=== PATIENT | male | born 1935 | race Caucasian/White ===

== ENCOUNTER 2018-06-28 16:07 | Inpatient (IN) | payer OTHER ==
[2018-06-28] MEDS ORDERED: ACETAMINOPHEN 1000 MG/100 ML VIAL (NON FORMULARY) IVPB ONE (16:35)
[2018-06-28 16:46] LABS: PH,URINE 5.5 (4.5-8); URINE APPEARANCE Clear; URINE BILIRUBIN Negative (NEGATIVE); URINE COLOR Yellow; URINE GLUCOSE (UA) Negative (NEGATIVE); URINE KETONE Negative (NEGATIVE); URINE LEUK ESTERASE Negative (NEGATIVE); URINE NITRITE Negative (NEGATIVE); URINE PROTEIN 1+ (NEGATIVE)
--- NOTE | 2018-06-28 16:50 | PDOC ---
History of Present Illness - General Chief Complaint: Urinary Problem Stated Complaint: FEVER, FREQUENT URINATION Time Seen by Provider: 06/28/18 16:29 - History of Present Illness Initial Comments: 06/28/18 16:45 The patient is a 83 year old male with a significant past medical history of HTN , HLD, aortic stenosis, CAD s/p CABG, CHF, and enlarged prostate who presents to the with 2 days of fever and chills. Patient reports chills that started on Friday night (06/26/18). Patient states he developed a fever last night of 100F that increased to 102 today. Patient took tylenol around 9am this morning with no relief. He states he was sitting in a chair earlier today and couldn't stand up secondary to generalized weakness, prompting him to come to the ER. Patient states he has cough and nasal congestion at his baseline. No worsening cough. Denies nausea, vomiting, or diarrhea. Denies dysuria or change in urinary output. Denies sore throat. Denies chest pain or shortness of breath. Denies any other symptoms. Denies recent travel. Denies sick contact. Past History - Past Medical History Allergies/Adverse Reactions: Allergies Allergy/AdvReac Type Severity Reaction Status Date / Time ibuprofen Allergy Severe Swelling Verified 06/28/18 16:35 Penicillins Allergy Verified 06/28/18 16:35 Home Medications: Ambulatory Orders Atorvastatin Ca [Lipitor] 80 mg PO HS 01/27/12 Tamsulosin HCl [Flomax -] 0.4 mg PO DAILY 12/30/13 Metoprolol Succinate [Toprol Xl] 50 mg PO DAILY 07/16/15 Amiodarone HCl [Cordarone -] 200 mg PO DAILY 06/28/18 Apixaban [Eliquis] 5 mg PO BID 06/28/18 Aspirin Coated [Ecotrin -] 81 mg PO DAILY 06/28/18 Furosemide [Lasix] 20 mg PO DAILY 06/28/18 Potassium Chloride [K-Dur -] 20 meq PO DAILY 06/28/18 Cardiac Disorders: Yes COPD: No Disorders: Yes (BPH) HTN: Yes Hypercholesterolemia: Yes - Surgical History Abdominal Surgery: No Appendectomy: Yes (1969) Cardiac Surgery: Yes (CABG X2 FEBRUARY 2018) Cholecystectomy: No Lung Surgery: No Neurologic Surgery: No Orthopedic Surgery: No - Suicide/Smoking/Psychosocial Hx Smoking Status: No Smoking History: Never smoked Have you smoked in the past 12 months: No Number of Cigarettes Smoked Daily: 0 If you are a former smoker, when did you quit?: 1986 Cigars Per Day: 0 Information on smoking cessation initiated: No Hx Alcohol Use: No Drug/Substance Use Hx: No Substance Use Type: None Review of Systems - Review of Systems Comments:: 06/28/18 16:50 "GENERAL/CONSTITUTIONAL: + fever, chills, generalized weakness HEAD, EYES, EARS, NOSE AND THROAT: No change in vision. No ear pain or discharge. No sore throat. CARDIOVASCULAR: No chest pain, no shortness of breath, no loss of consciousness RESPIRATORY: No cough, wheezing, or hemoptysis. GASTROINTESTINAL: No nausea, vomiting, diarrhea or constipation. GENITOURINARY: No dysuria, frequency, or change in urination. MUSCULOSKELETAL: No joint or muscle swelling or pain. No neck or back pain. SKIN: No rash NEUROLOGIC: No vertigo, no change in strength/sensation. ENDOCRINE: No increased thirst. No abnormal weight change. HEMATOLOGIC/LYMPHATIC: No anemia, easy bleeding, or history of blood clots. ALLERGIC/IMMUNOLOGIC: No hives or skin allergy. *Physical Exam - Vital Signs Last Vital Signs Temp Pulse Resp BP Pulse Ox 102.1 F H 74 18 147/63 96 06/28/18 16:28 06/28/18 16:28 06/28/18 16:28 06/28/18 16:28 06/28/18 16:28 - Physical Exam Comments: 06/28/18 16:50 "GENERAL: Awake, alert, and fully oriented, in no acute distress. HEAD: No signs of trauma EYES: PERRLA, EOMI, sclera anicteric, conjunctiva clear ENT: Auricles normal inspection, hearing grossly normal, nares patent, oropharynx clear without exudates. Moist mucosa NECK: Nontender, no stepoffs, Normal ROM, supple, no lymphadenopathy, JVD, or masses LUNGS: Breath sounds equal, clear to auscultation bilaterally. No wheezes, and no crackles HEART: Regular rate and rhythm, normal S1 and S2, no murmurs, rubs or gallops ABDOMEN: + right upper quadrant tenderness. Soft, normoactive bowel sounds. No guarding, no rebound. No masses EXTREMITIES: Normal range of motion, no edema. No clubbing or cyanosis. No cords , erythema, or tenderness NEUROLOGICAL: Cranial nerves II through XII intact. 5/5 strength and sensation in all extremities, Normal speech, normal gait, normal cerebellar function SKIN: Warm, Dry, normal turgor, no rashes or lesions noted. ED Treatment Course - LABORATORY CBC & Chemistry Diagram: 06/28/18 17:00 06/28/18 17:00 - RADIOLOGY Radiology Studies Ordered: Category Date Time Status CHEST X-RAY PORTABLE* [RAD] Stat Radiology 06/28/18 16:35 Ordered ABDOMEN US [US] Stat Ultrasound 06/28/18 16:40 Ordered Medical Decision Making - Medical Decision Making 06/28/18 16:51 83 M with fevers and weakness x 2 days. Source is unclear at this time. Pt with no focal symptoms. However, on exam, pt was found to have RUQ tenderness. Will evaluate for cholecystitis. Also consider UTI given h/o BPH. - Labs, cultures - UA, CXR - US abdomen - Tylenol 06/28/18 17:59 UA and CXR unremarkable US shows gallbladder sludge + gallstones + wall thickening, no pericholecystic fluid, CBD 0.7cm 06/28/18 18:13 Labs notable for bili >7 Concerning for cholangitis Will cover with flagyl + levaquin - pt is pen-allergic Cr up to 1.6 from 1. Will give 500cc bolus. Pt with h/o CHF and pitting edema on exam, so will need to be cautious with IVF. 06/28/18 18:32 Spoke with DARRYL Dave live ammunition inspector, who agrees with IV abx. Because pt is on Eliquis, no procedure will be done tonight. Confirmed with pt, last dose of eliquis was 9am today. Will admit to hospitalist, transfer to [facility] 06/28/18 18:54 Pt admitted to hospitalist. *DC/Admit/Observation/Transfer Diagnosis at time of Disposition: Cholangitis - Discharge Dispostion Condition at time of disposition: Good Decision to Admit order: Yes - Referrals Referrals: Ezio Castellanos [Primary Care Provider] - - Patient Instructions - Post Discharge Activity - Attestations Physician Attestion: 06/28/18 18:53 I, Dr. Tomer Snyder MD, attest that this document has been prepared under my direction and personally reviewed by me in its entirety. I further attest, that it accurately reflects all work, treatment, procedures and medical decision -making performed by me.
[2018-06-28 16:51] VITALS: BMI 37.5
[2018-06-28 17:28] LABS: EPI CELLS FEW /HPF; URINE WBC 0-2 (0-2)
[2018-06-28 17:29] LABS: AMORP URATES 1+ /hpf (NONE SEEN)
[2018-06-28 17:53] LABS: ALBUMIN 3.3 g/dl (3.5-5.0); ALK PHOS 170 U/L (32-92); ANION GAP 10 MMOL/L (8-16); BILIRUBIN,TOTAL 7.8 mg/dl (0.2-1.0); BLOOD UREA NITROGEN 33 mg/dl (7-18); CALCIUM 8.2 mg/dl (8.4-10.2); CHLORIDE 96 mmol/L (98-107); CO2 22 mmol/L (22-28); CREATININE 1.6 mg/dl (0.6-1.3); GLUCOSE,RANDOM 109 mg/dl (74-106); POTASSIUM 3.1 mmol/L (3.5-5.1); SGOT/AST 70 U/L (10-42); SGPT/ALT 101 U/L (10-40); SODIUM 128 mmol/L (136-145); TOT PROT 7.5 g/dl (6.4-8.3)
[2018-06-28] MEDS ORDERED: ACETAMINOPHEN INJECTION 100 ML IVPB ONE (17:53)
[2018-06-28 17:54] LABS: WHITE BLOOD COUNT 8.4 K/mm3 (4.0-10.8)
[2018-06-28 18:05] LABS: EOS % 0.1 % (0-4.5); HEMATOCRIT 31.5 % (35.4-49); RDW 16.4 % (11.9-15.9)
[2018-06-28 18:07] LABS: BASO % 2.1 % (0-2.0); HEMOGLOBIN 10.1 GM/dl (11.7-16.9); LYMPH % 4.5 % (8-40); MCHC 32.1 g/dl (32.0-35.9); MEAN CELL VOLUME 84.2 fl (80-96); MEAN PLT VOLUME 10.2 fl (7.5-11.1); MONO % 3.7 % (3.8-10.2); NEUT % 89.6 % (42.8-82.8); PLATELET COUNT 140 K/MM3 (134-434); RBC 3.74 M/mm3 (4.00-5.60)
[2018-06-28 18:09] LABS: ACTIVATED PTT 27.8 SECONDS (25.2-36.5)
[2018-06-28 18:14] LABS: INR 2.47 (0.82-1.09); PROTHROMBIN TIME (PATIENT) 27.2 SEC (10.2-13.0)
[2018-06-28 18:30] LABS: VENOUS PC02 38.9 mmHg (38-52); VENOUS PH 7.41 (7.32-7.42); VENOUS PO2 30.6 mmHg (28-48)
[2018-06-28] MEDS ORDERED: SODIUM CHLORIDE 500 ML IV STA (18:39)
--- NOTE | 2018-06-28 20:08 | PN ---
Teaching Attending Note Name of Resident: Lyn Boone ATTENDING PHYSICIAN STATEMENT I saw and evaluated the patient. I reviewed the resident's note and discussed the case with the resident. I agree with the resident's findings and plan as documented. SUBJECTIVE: Seen and examined; please see resident note for further details. Presented for groin pain, interestingly, on the L-side to -ER and was found to have labs suspect for acute cholangitis so he was transferred to this facility. Nothing is making his symptoms better or worse, not limiting ambulation, etc. He is noted to be febrile and jaundiced with elevated LFTs. Agrees is not jaundiced at baseline. The groin pain occurred when he was 'pulling himself up.' He had one episode of loose stools that was self resolving. When I saw him on the floor he was febrile and hemodynamically stable and had no acute complaints. He was doing well and reqesting something to drink. His PMH is complicated by Afib on eliquis, anemia, CAD s/p CABG 02/2018, BPH, HTN, HLD, and non-critical . He was given several liters of fluid and abx prior to transfer. Never had hypotension/tachycardia. Labs/imaging to be discussed in objective section. GI was called by ER; cannot do urgent procedure as on eliquis. 10 sys ROS done and is negative aside from HPI PMH and PSH reviewed FH significant for pancreatic and liver CA. Socially denies alcohol or drug abuse OBJECTIVE: VSS, febrile at 102, labs and imaging all reviewed NAD, resting in bed, jaundice evident RRR s1/2 2/6 systolic murmur (faint) with no heaves, rubs Lungs CTAB with sym exp Nontender throughout abdomen and flanks and nondistended; obese abdomen. Difficult to assess for HSM. +BS CN2-12 grossly intact, no fnd. Normal behavior, euthymic affect. Labs show no white count with negative lactate. Normocytic anemia with Hb of 10 , Na 128, K 3.1, Cr 1.6, AST/ALT 70/101, Alk Phos 170, BNP 2764. Old bilirubin was 3.5 and the AST/ALT is 72/85 with alk phos of 264 on his last values here. Imaging reveals CBD mildly dilated at 0.7 with cholelitiasis and sludge with a thickened wall at 6mm without any pericholecystic fluid. No sonographic martinez sign. IVC wnl. No dilation of the intra/extra-hepatic ducts. Tele reviewed; no acute issues ASSESSMENT AND PLAN: Mr. Chew is an 83 y/o male presenting with fever and acute on chronic hyperbilirubinemia found to have sludge/stones and a 0.7cm CBD; suspected cholangitis. GI consulted by ER; monitoring on the medicine service. Currently stable and afebrile. 1) Acute Choleangitits suspected -Given fevers, elevated LFTs. No teena abdominal pain when i saw him. As PNC allergic will cover with cefepime and flagyl. GI is following. He will need ERCP but he is on eliquis with his afib. Will hold his eliquis and followup with their service. If it is desired can check MRCP but ultimately may require the procedre. I should mention that his LFTs have been high in the past, but his bili hasn't ever been this elevated. I dont see a prior hepatitis workup so will go ahead and check that alongside an ESR/CRP to elucidate the degree of acute inflammation. Hold antihypertensives. 2) Acute Hyponatremia -Appears euvolemic but need to consider BNP elevated but no s/s CHF. Still, checking urine Na, osm and serum osm. Continuing on fluids given #1 but can adjust if needed. He is on lasix at home; could be renal solute loss due to diuresis vs. fluid depletion. He is difficult to ascertain volume status. 3) ADILENE -Trended here at 1.0, now 1.6. Checking FeNa; if inconclusive check HENRY and consult nephro if worsens. If from #1 likely could be prerenal and should have corrected with the fluids he got. Followup on BMP and UOP. 4) Hypokalemia -Replace, monitor labs 5) Elevated BNP -Not overtly overloaded; if he is infected he should still get fluids. Will elect to be more conservative than true maintenance rate while still hydrating, monitor respiratory status carefully, and check an echo to assess for EF/ compliance issues. 6) BPH -No new issues; continue current approach 7) HTN -Hold antihypertensives due to suspected cholangitis; resume when clinically appropriate 8) HLD -Nonacute; resume meds when appropriate 9) H/O -Stated not critical; followup echo and avoid hypotension 10) Afib -Resume MT if tachy from non-septic source; hold for now to prevent suppressing body's response to underlying infection to monitor. Furthermore holding eliquis for procedure as benefits greater than risk of stroke in this acute scenario 11) Groin pain -Benign exam; may be referred? -Symptomatic management for now; once resolution of pressing issues can further investigate unless becomes severe. 12) Normocytic Anemia -Monitor; XF goal >8 DVT px: SCDs for now; can switch to SQ hep while off eliquis and then place back on eliquis when clear with GI.
[2018-06-29] MEDS: LACTATED RINGERS SOLUTION 1,000 ML/1,000 ML INFUS.BAG IV SCH (02:10)
[2018-06-29] MEDS: ACETAMINOPHEN 325 MG TABLET (FP) PO PRN ×2 (02:11→11:56)
[2018-06-29] MEDS: CEFEPIME 2 GM in DEXTROSE 5%-WATER 100 ML IVPB SCH ×3 (03:49→22:00)
--- NOTE | 2018-06-29 04:27 | HP ---
CHIEF COMPLAINT: groin pain PCP: Dr. Castellanos HISTORY OF PRESENT ILLNESS: Patient is a 83 y/o male with a history of HTN, HLD, BPH, , afib, and CABG in February who presents for groin pain. Patient reports he was pulling himself up on friday when he began to feel pain in his left groin. He notes he has never felt this before, it did not get better, and it radiates up his left thigh. For the past two days the patient has also been feeling feverish with chills. He denies any sick contacts. Patient presented to [facility] with these complaints. ED suspicious for cholangitis and had patient transferred here. Patient did not take his PM dose of elliquis. ED spoke with GI and discussed management with antibiotics and follow up in the morning. Patient denies chest pain, SOB, nausea , vomiting, dizziness, or headache. ER course was notable for: (1) (2) (3) Recent Travel: PAST MEDICAL HISTORY:HTN, HLD, BPH, , afib, and CABG in February PAST SURGICAL HISTORY: appendectomy 40 years ago Social History: Smoking: quit 30 years ago Alcohol: denies Drugs: Family History: brother and sister pertinent for pancreatic and liver cancer Allergies ibuprofen Allergy (Severe, Verified 06/28/18 16:35) Swelling Penicillins Allergy (Verified 06/28/18 16:35) HOME MEDICATIONS: Home Medications Medication Instructions Recorded Atorvastatin Ca [Lipitor] 80 mg PO HS 01/27/12 Tamsulosin HCl [Flomax -] 0.4 mg PO DAILY 12/30/13 Metoprolol Succinate [Toprol Xl] 50 mg PO DAILY 07/16/15 Amiodarone HCl [Cordarone -] 200 mg PO DAILY 06/28/18 Apixaban [Eliquis] 5 mg PO BID 06/28/18 Aspirin Coated [Ecotrin -] 81 mg PO DAILY 06/28/18 Furosemide [Lasix] 20 mg PO DAILY 06/28/18 Potassium Chloride [K-Dur -] 20 meq PO DAILY 06/28/18 REVIEW OF SYSTEMS CONSTITUTIONAL: Absent: fever, chills, diaphoresis, generalized weakness, malaise, loss of appetite, weight change HEENT: Absent: rhinorrhea, nasal congestion, throat pain, throat swelling, difficulty swallowing, mouth swelling, ear pain, eye pain, visual changes CARDIOVASCULAR: Absent: chest pain, syncope, palpitations, irregular heart rate, lightheadedness , peripheral edema RESPIRATORY: Absent: cough, shortness of breath, dyspnea with exertion, orthopnea, wheezing, stridor, hemoptysis GASTROINTESTINAL: Absent: abdominal pain, abdominal distension, nausea, vomiting, diarrhea, constipation, melena, hematochezia GENITOURINARY: Absent: dysuria, frequency, urgency, hesitancy, hematuria, flank pain, genital pain MUSCULOSKELETAL: Absent: myalgia, arthralgia, joint swelling, back pain, neck pain SKIN: Absent: rash, itching, pallor HEMATOLOGIC/IMMUNOLOGIC: Absent: easy bleeding, easy bruising, lymphadenopathy, frequent infections ENDOCRINE: Absent: unexplained weight gain, unexplained weight loss, heat intolerance, cold intolerance NEUROLOGIC: Absent: headache, focal weakness or paresthesias, dizziness, unsteady gait, seizure, mental status changes, bladder or bowel incontinence PSYCHIATRIC: Absent: anxiety, depression, suicidal or homicidal ideation, hallucinations. PHYSICAL EXAMINATION Vital Signs - 24 hr 06/28/18 06/28/18 06/28/18 16:28 17:51 18:20 Temperature 102.1 F H 100.9 F H Pulse Rate 74 Pulse Rate [ 69 Apical] Respiratory 18 22 H Rate Blood Pressure 147/63 Blood Pressure 132/55 L [Right Arm] O2 Sat by Pulse 96 94 L Oximetry (%) 06/28/18 06/28/18 06/28/18 19:30 20:02 20:36 Temperature 99.1 F 99.1 F Pulse Rate 62 62 Pulse Rate [ 64 Apical] Respiratory 22 H 22 H 22 H Rate Blood Pressure 108/47 L 109/51 L Blood Pressure 104/48 L [Right Arm] O2 Sat by Pulse 96 Oximetry (%) 06/28/18 06/28/18 06/29/18 22:53 23:00 02:00 Temperature 102.3 F H 102.3 F H 102.0 F H Pulse Rate 81 81 73 Pulse Rate [ Apical] Respiratory 18 20 28 H Rate Blood Pressure 159/79 159/79 144/52 L Blood Pressure [Right Arm] O2 Sat by Pulse 96 Oximetry (%) GENERAL: Awake, alert, and fully oriented, in no acute distress. HEAD: Normal with no signs of trauma. EYES: Pupils equal, round and reactive to light, extraocular movements intact, sclera anicteric, conjunctiva clear. No lid lag. EARS, NOSE, THROAT:Moist mucous membranes. LUNGS: Breath sounds equal, clear to auscultation bilaterally. No wheezes, and no crackles. No accessory muscle use. HEART: Regular rate and rhythm, normal S1 and S2 without murmur, rub or gallop. ABDOMEN: Soft, nontender, not distended, normoactive bowel sounds, no guarding, no rebound, no masses. No hepatomegaly or splenomegaly. MUSCULOSKELETAL: Normal range of motion at all joints. No bony deformities or tenderness. No CVA tenderness. LOWER EXTREMITIES: 2+ pulses, warm, well-perfused. No calf tenderness. No peripheral edema. NEUROLOGICAL: Cranial nerves II-XII intact. Normal speech. PSYCHIATRIC: Cooperative. Good eye contact. Appropriate mood and affect. SKIN: jaundice on presentation Laboratory Results - last 24 hr CBC, BMP 06/28/18 17:00 06/28/18 17:00 CBCD WBC 8.4 K/mm3 (4.0-10.8) 06/28/18 17:00 RBC 3.74 M/mm3 (4.00-5.60) L 06/28/18 17:00 Hgb 10.1 GM/dl (11.7-16.9) L 06/28/18 17:00 Hct 31.5 % (35.4-49) L D 06/28/18 17:00 MCV 84.2 fl (80-96) 06/28/18 17:00 MCHC 32.1 g/dl (32.0-35.9) 06/28/18 17:00 RDW 16.4 % (11.9-15.9) H D 06/28/18 17:00 Plt Count 140 K/MM3 (134-434) D 06/28/18 17:00 MPV 10.2 fl (7.5-11.1) D 06/28/18 17:00 CMP Sodium 128 mmol/L (136-145) L 06/28/18 17:00 Potassium 3.1 mmol/L (3.5-5.1) L 06/28/18 17:00 Chloride 96 mmol/L (98-107) L 06/28/18 17:00 Carbon Dioxide 22 mmol/L (22-28) D 06/28/18 17:00 Anion Gap 10 MMOL/L (8-16) 06/28/18 17:00 BUN 33 mg/dl (7-18) H 06/28/18 17:00 Creatinine 1.6 mg/dl (0.6-1.3) H 06/28/18 17:00 Creat Clearance w eGFR 41.69 (>60) 06/28/18 17:00 Random Glucose 109 mg/dl (74-106) H 06/28/18 17:00 Calcium 8.2 mg/dl (8.4-10.2) L 06/28/18 17:00 Total Bilirubin 7.8 mg/dl (0.2-1.0) H 06/28/18 17:00 AST 70 U/L (10-42) H 06/28/18 17:00 ALT 101 U/L (10-40) H 06/28/18 17:00 Alkaline Phosphatase 170 U/L (32-92) H 06/28/18 17:00 Total Protein 7.5 g/dl (6.4-8.3) 06/28/18 17:00 Albumin 3.3 g/dl (3.5-5.0) L 06/28/18 17:00 CARDIAC ENZYMES Troponin I 0.04 ng/ml (0.00-0.06) D 06/28/18 17:00 ASSESSMENT/PLAN: Patient is a 83 y/o male with a history of HTN, HLD, BPH, , afib, and CABG in February who presents for groin pain. #sepsis 2/2 to cholelithiasis r/o cholangitis - Abd CT: gallbladder stones, thickening and sludge - Continue Cefepime and Metronidazole - 30 cc/kg, continue LR @ 60 - NPO - f/u GI Dr. Hilton - can consider consulting surgery if condition worsens - f/u ESR and CRP - f/u hepatitis panel #afib controlled - hold medications until patient hemodynamically stable - f/u Echo, r/o CHF - continue fluids for , avoid decreased preload #hyponatremia - 2/2 to sepsis vs CHF, patient euvolemic - F/u urine and serum osmoles, sodium osmole #ADILENE - likely 2/2 to sepsis - f/u FeNA - monitor after fluids #normoytic anemia - f/u iron studeis - vitamin B 12 and folate levels #HTN - hold medications, resume when hemodynamically stable #Hypokalemia - hold lasix, monitor labs #DVT ppx - continue SCD's - hold heparin for possible surgery Visit type - Emergency Visit Emergency Visit: Yes ED Registration Date: 06/28/18 Care time: The patient presented to the Emergency Department on the above date and was hospitalized for further evaluation of their emergent condition. - New Patient This patient is new to me today: Yes Date on this admission: 06/29/18 - Critical Care Critical Care patient: No
[2018-06-29 06:00] LABS: BASO % 0.4 % (0-2.0); HEMATOCRIT 27.3 % (35.4-49); HEMOGLOBIN 8.7 GM/dL (11.7-16.9); LYMPH % 3.6 % (8-40); MCH 26.1 pg (25.7-33.7); MCHC 31.9 g/dl (32.0-35.9); MEAN CELL VOLUME 81.9 fl (80-96); MEAN PLT VOLUME 9.4 fl (7.5-11.1); MONO % 4.8 % (3.8-10.2); NEUT % 91.2 % (42.8-82.8); PLATELET COUNT 107 K/MM3 (134-434); RBC 3.33 M/mm3 (4.00-5.60); RDW 17.6 % (11.9-15.9); WHITE BLOOD COUNT 7.8 K/mm3 (4.0-10.0)
[2018-06-29 07:23] LABS: ALBUMIN 2.7 g/dl (3.4-5.0); ALK PHOS 189 U/L (45-117); ANION GAP 12 MMOL/L (8-16); BILIRUBIN,TOTAL 6.6 mg/dL (0.2-1); BLOOD UREA NITROGEN 31 mg/dL (7-18); CALCIUM 7.6 mg/dL (8.5-10.1); CHLORIDE 101 mmol/L (98-107); CHOLESTEROL 92 mg/dL (50-200); CO2 23 mmol/L (21-32); CREATININE 1.5 mg/dL (0.55-1.3); GLUCOSE,RANDOM 91 mg/dL (74-106); MAGNESIUM 2.1 mg/dL (1.8-2.4); PHOSPHOROUS 2.4 mg/dL (2.5-4.9); SGOT/AST 55 U/L (15-37); SGPT/ALT 77 U/L (13-61); SODIUM 136 mmol/L (136-145); TOT PROT 6.4 g/dl (6.4-8.2)
--- NOTE | 2018-06-29 10:33 | CONSULT ---
Consult Consult Specialty:: General Surgery Reason for Consultation:: Cholangitis - History of Present Illness Chief Complaint: Groin pain and Weakness History of Present Illness: 83yo male PMH morbid obsity, HTN, HLD, BPH, , afib, and CABG in February who presents for groin pain. Patient reports he was pulling himself up on friday when he began to feel pain in his left groin. He notes he has never felt this before, it did not get better, and it radiates up his left thigh. For the past two days the patient has also been feeling feverish with chills. He denies any sick contacts. Patient presented to [facility] with these complaints. ED suspicious for cholangitis and had patient transferred here Tbili >6. Patient did not take his PM dose of elliquis. ED spoke with GI and discussed management with antibiotics and follow up in the morning. Patient denies chest pain, SOB, nausea , vomiting, dizziness, or headache. We were asked to assess. - History Source History Provided By: Patient, Medical Record Limitations to Obtaining History: No Limitations - Past Medical History Cardio/Vascular: Yes: HTN, Hyperlipdemia, [place] Additional Medical History: obesity - Past Surgical History Past Surgical History: Yes: CABG - Alcohol/Substance Use Hx Alcohol Use: No - Smoking History Smoking history: Never smoked Have you smoked in the past 12 months: No Aproximately how many cigarettes per day: 0 If you are a former smoker, when did you quit?: 1985 Home Medications - Allergies Allergies/Adverse Reactions: Allergies Allergy/AdvReac Type Severity Reaction Status Date / Time ibuprofen Allergy Severe Swelling Verified 06/28/18 16:35 Penicillins Allergy Verified 06/28/18 16:35 - Home Medications Home Medications: Ambulatory Orders Atorvastatin Ca [Lipitor] 80 mg PO HS 01/27/12 Tamsulosin HCl [Flomax -] 0.4 mg PO DAILY 12/30/13 Metoprolol Succinate [Toprol Xl] 50 mg PO DAILY 07/16/15 Amiodarone HCl [Cordarone -] 200 mg PO DAILY 06/28/18 Apixaban [Eliquis] 5 mg PO BID 06/28/18 Aspirin Coated [Ecotrin -] 81 mg PO DAILY 06/28/18 Furosemide [Lasix] 20 mg PO DAILY 06/28/18 Potassium Chloride [K-Dur -] 20 meq PO DAILY 06/28/18 Review of Systems - Review of Systems Constitutional: reports: Fever. denies: Chills Eyes: denies: Double Vision, Recent Change in Vision HENT: denies: Ear Discharge, Throat Pain, Ringing in Ears Neck: denies: Lumps, Pain on Movement, Swollen Glands Cardiovascular: denies: Chest Pain, Palpitations Gastrointestinal: reports: Abdominal Pain, Indigestion. denies: Nausea, Rectal Bleeding, Vomiting Genitourinary: denies: Discharge, Dysuria, Flank Pain Breasts: reports: No Symptoms Reported. denies: Pain Musculoskeletal: denies: Muscle Cramps, Muscle Weakness Integumentary: denies: Eczema, Lump, Rash Neurological: denies: Confusion, Seizure, Syncope Endocrine: denies: Unexplained Weight Gain, Unexplained Weight Loss Hematology/Lymphatic: denies: Easily Bruised, Excessive Bleeding Psychiatric: denies: Anxiety, Depression Physical Exam Vital Signs: Vital Signs Temperature 97.9 F 06/29/18 05:30 Pulse Rate 62 06/29/18 05:30 Respiratory Rate 20 06/29/18 05:30 Blood Pressure 108/48 L 06/29/18 05:30 O2 Sat by Pulse Oximetry (%) 96 06/28/18 22:53 Constitutional: Yes: Well Nourished, No Distress, Calm, Obese Eyes: Yes: Conjunctiva Clear, EOM Intact HENT: Yes: Atraumatic, Normocephalic Neck: Yes: Supple, Trachea Midline Cardiovascular: Yes: Regular Rate and Rhythm, S1, S2 Respiratory: Yes: Regular, CTA Bilaterally Gastrointestinal: Yes: Normal Bowel Sounds, Soft, Abdomen, Obese. No: Pulsatile Mass, Tenderness (-murphys sign), Tenderness, Epigastrium, Tenderness , Rebound ...Rectal Exam: Yes: Deferred Renal/: No: CVA Tenderness - Left, CVA Tenderness - Right Musculoskeletal: No: Muscle Pain, Muscle Weakness Extremities: No: Cool, Cyanosis Edema: No Peripheral Pulses WNL: Yes Integumentary: No: Jaundice, Pressure Ulcer Neurological: Yes: Alert, Oriented Psychiatric: Yes: Alert, Oriented Labs: CBC, BMP 06/29/18 02:30 06/29/18 02:30 Imaging - Results Ultrasound: Report Reviewed ( cholelithiasis and sludge, CBD 0.7cm), Image Reviewed Problem List - Problems (1) Cholangitis Assessment/Plan: 83yo male MMP with cholelithiasis possible choledocholithiasis causing a cholangitis Tbili>6, Dbili >4 with transaminititis, fatty changes on imaging. he has no abdominal tendernenss on exam. NPO and IVF hydration IV antibiotics ID consult GI evaluation Cardiology risk stratification/ medical clearance for possible Possible laparoscopic cholecystetcomy Thank you for the opportunity to participate in the care of this patient. Code(s): K83.09 - OTHER CHOLANGITIS (2) Abnormal LFTs Code(s): R79.89 - OTHER SPECIFIED ABNORMAL FINDINGS OF BLOOD CHEMISTRY (3) Aortic stenosis Code(s): Q25.3 - SUPRAVALVULAR AORTIC STENOSIS (4) Atrial fibrillation with rapid ventricular response Code(s): I48.91 - UNSPECIFIED ATRIAL FIBRILLATION (5) Chest pain Code(s): R07.9 - CHEST PAIN, UNSPECIFIED
[2018-06-29 11:20] LABS: ANISOCYTOSIS 1+; MACROCYTOSIS 1+; PLATELET ESTIMATE DECREASED
[2018-06-29] MEDS ORDERED: PHYTONADIONE 5 MG TABLET PO ONE (11:54)
--- NOTE | 2018-06-29 12:10 | CON.GI ---
Consult Consult Specialty:: GI Referred by:: Hospitalist Service Reason for Consultation:: Abnormal liver chemistries - History of Present Illness Chief Complaint: Left hip pain History of Present Illness: 83M states being in [place] up until friday. On friday he noticed a pain in his left hip radiating down to his lateral / anterior thigh. He noticed belching as well along with small amount of vomiting friday. He had fever at home and took 2 ES tylenol friday and friday. He came to the [facility] [facility] for further evaluation yesterday. He was noted to have elevated liver chemistries including bilirubin of 7, out of proportion to an alkaline phosphatase of 170. INR was also 2.75. He denies abdominal pain. Left hip pain persists. In review of [facility], he was noted to have abnormal liver chemistries in 2014 including elevated bilirubin of 3.5. He denies a known history of liver disease , drinks occasional wine and does not follow with a bark grinder. His explains that he had outpatient labs 06/08 that revealed "a high bilirubin ". She states that she provided a copy of this to the [place] [facility] staff however there was no copy available in the chart. He recently underwent CABG at [facility] 02/25 and new medications subsequent to that included Amiodarone, an escalated dose of lipitor to 80mg, Eliquis and lasix. He had two siblings with pancreatic cancer. There is no family history of colorectal cancer. He refuses MRI even with giving anxiolytic - History Source History Provided By: Patient, Family Member ( present at bedside) - Past Medical History Cardio/Vascular: Yes: HTN, Hyperlipdemia, [place] Additional Medical History: obesity - Past Surgical History Past Surgical History: Yes: CABG - Alcohol/Substance Use Hx Alcohol Use: No - Smoking History Smoking history: Never smoked Have you smoked in the past 12 months: No Aproximately how many cigarettes per day: 0 If you are a former smoker, when did you quit?: 1985 - Social History Usual Living Arrangement: With Spouse ADL: Independent Occupation: Retired: worked for [employer] Place of : [facility] History of Recent Travel: No Home Medications - Allergies Allergies/Adverse Reactions: Allergies Allergy/AdvReac Type Severity Reaction Status Date / Time ibuprofen Allergy Severe Swelling Verified 06/28/18 16:35 Penicillins Allergy Verified 06/28/18 16:35 - Home Medications Home Medications: Ambulatory Orders Atorvastatin Ca [Lipitor] 80 mg PO HS 01/27/12 Tamsulosin HCl [Flomax -] 0.4 mg PO DAILY 12/30/13 Metoprolol Succinate [Toprol Xl] 50 mg PO DAILY 07/16/15 Amiodarone HCl [Cordarone -] 200 mg PO DAILY 06/28/18 Apixaban [Eliquis] 5 mg PO BID 06/28/18 Aspirin Coated [Ecotrin -] 81 mg PO DAILY 06/28/18 Furosemide [Lasix] 20 mg PO DAILY 06/28/18 Potassium Chloride [K-Dur -] 20 meq PO DAILY 06/28/18 Family Disease History - Family Disease History Family Disease History: Other: Father (: 76: renal failure), Mother (: 92: "natural causes") Other Family History: 11 siblings: 2 with pancreatic cancer, 1 with BCA Review of Systems - Review of Systems Constitutional: reports: Chills, Fever. denies: Unintentional Wgt. Loss Cardiovascular: reports: Edema. denies: Chest Pain Respiratory: reports: Cough (chronic, since CABG) Gastrointestinal: reports: Indigestion (belching, has resolved), Vomiting (x 1 friday). denies: Abdominal Pain, Bloating, Constipation, Diarrhea, Melena Physical Exam-GI Vital Signs: Vital Signs Temperature 102.8 Rectal 06/29/18 12pm 06/29/18 12pm 06/29/18 12pm 06/29/18 12pm 06/28/18 12pm Constitutional: Yes: Calm Eyes: No: Sclera Icterus Cardiovascular: Yes: Regular Rate and Rhythm, Murmur (2/6 Systolic murmur at the RSB) Respiratory: Yes: CTA Bilaterally Gastrointestinal Inspection: No: Distention ...Auscultate: Yes: Normoactive Bowel Sounds ...Palpate: No: Hepatomegaly, Splenomegaly, Tenderness ...Percussion: No: Tympanitic Edema: Yes (up to thighs) Edema: LLE: 1+, RLE: 2+ Neurological: Yes: Alert Labs: CBC, BMP 06/29/18 02:30 06/29/18 02:30 INR, PTT INR 2.47 (0.82-1.09) H D 06/28/18 17:00 Hepatic Panel Total Bilirubin 6.6 mg/dL (0.2-1) H 06/29/18 02:30 AST 55 U/L (15-37) H 06/29/18 02:30 ALT 77 U/L (13-61) H 06/29/18 02:30 Alkaline Phosphatase 189 U/L (45-117) H 06/29/18 02:30 Albumin 2.7 g/dl (3.4-5.0) L 06/29/18 02:30 Laboratory Tests 01/27/12 07/16/15 06/28/18 21:10 11:30 17:00 Total Bilirubin 1.8 H 3.5 H D 7.8 H AST 24 72 H D 70 H ALT 22 85 H D 101 H Alkaline Phosphatase 59 264 H D 170 H 06/29/18 02:30 Total Bilirubin 6.6 H AST 55 H ALT 77 H Alkaline Phosphatase 189 H Imaging - Results Ultrasound: Report Reviewed (Hepatomegaly with fatty infoltration, Mildly dilated CBD, GB wall mildly thickened with sludge and multiple small stones.) Problem List - Problems (1) Abnormal LFTs Assessment/Plan: Clinical picture is not clear cut for cholangitis however it needs to be higher in differential for now. It appears from prior blood work that Mr. Chew may have underlying liver disease which has been further acutely decompensated by current clinical situation. His primary complaint of left thigh and hip pain is hard to link to biliary infection as well and infection / inflammatory process at that site would need to be investigated. Advise: NPO IV hydration / IV Abx. ID consult for Dr. Tracey has been placed and I discussed case with her Spoke with director medical economics yamileth. Patient needs direct bilirubin, repeat coags (asked that she order 2 units FFP for today),CPK drawn. If predominantly indirect hyperbilirubinemia, a hemolysis work-up would be needed. Imaging of the left help to exclude a source for sepsis. Surgical consult Eliminate potentially hepatotoxic agents: eliminate tylenol Hepatitis A/B/C serologies in AM I discussed the possibility of ERCP with Mr. Chew and his . I explained that it would be to further evaluate the bile duct to assess for source of infection. We discussed potential risks of the procedure like but not limited to bleeding, perforation requiring surgery to repair, infection, pancreatitis, sedation medication effects all of which could be potentially life threatening. Case was discussed with Dr. Black, biliary endoscopist as well. He will be going to discuss the case with Mr. Chew possible urgent ERCP today given high fevers today without obvious source. Code(s): R79.89 - OTHER SPECIFIED ABNORMAL FINDINGS OF BLOOD CHEMISTRY
[2018-06-29] MEDS: KCL 10 MEQ IVPB 10 MEQ/100 ML INFUS.BAG IVPB SCH ×3 (12:14→20:00)
[2018-06-29 13:03] LABS: BILIRUBIN,DIRECT 4.9 mg/dL (0.0-0.2)
--- NOTE | 2018-06-29 13:32 | PN ---
Progress Note (short form) - Note Progress Note: ERCP Note: I was asked by Dr Encinas to emergently evaluate Mr. Chew for suspected cholangitis. He has chills and is febrile to 103 with jaundice. Sonogram reveals small gallstones and a slightly dilated CBD. His bilirubin was 1.7 at [facility] on 05/22/18. He denies abdominal pain. He denies and h/o liver disease. He drinks occasional wine with dinner. His brother of liver cancer related to alcoholic liver disease. I explained to Chin and his that his constellation of findings suggest ascending cholangitis. I have discussed the role of ERCP to confirm the diagnosis and to provide drainage of the CBD. I explained that given his Eliquis exposure that a sphincterotomy will not be feasible and that he will need a repeat ERCP for a sphincterotomy and stone extractions. I also told him that he will need subsequent cholecystectomy. I informed him and his of the potential for such complications as perforation, hemorrhage and ERCP induced pancreatitis that could lead to lung and kidney failure. I quoted an incidence of 5 -15%. After I answered their questions he signed an informed consent. I have rearranged my schedule so that I can do this procedure immediately. FFP has already been ordered and potassium is being replaced. He is receiving antibiotics. Chin denies having aortic stenosis. He had his CABG in 02/25 but denies having an VT. He does have paroxysmal atrial fibrillation and CHF. I have called his remarketing rep Dr. Dante Darby [phone] to discuss his situation and await a return call.
[2018-06-29 13:55] LABS: INR 1.49 (0.83-1.09); PROTHROMBIN TIME (PATIENT) 17.6 SEC (9.7-13.0)
[2018-06-29] MEDS ORDERED: PT OWN MED DRAWER 7, Y5N ONE (14:08)
--- NOTE | 2018-06-29 14:35 | CON.ID ---
Consult Consult Specialty:: infectious disease Referred by:: dr dumont Reason for Consultation:: fever - History of Present Illness Chief Complaint: fever, weakness, belching, left groin pain History of Present Illness: 83 yo man with cad [facility], developed chills at dinner on Friday night, didn't eat anything and went home. He had belching and chills and fever that night, He had weakness and had trouble getting out of bed to use the bathroom. After that he had left groin that has persisted. Actullay better today. He denies trauma to the area, no falls. He continued to have fevers and chills and finally became so weak that he went to [facility]. He was found to be icteric with abnl lfts and fever to 102. Ultrasound with gallstones, dilated cbd he was transferred to [facility] for further workup continued fevers he received levaquin, flagyl, cefepime since admission denies abdominal pain +reflux - Past Medical History Cardio/Vascular: Yes: CAD, HTN, Hyperlipdemia, [place] Additional Medical History: obesity - Past Surgical History Past Surgical History: Yes: Appendectomy, CABG ([facility] ), Cataract Removal - Alcohol/Substance Use Hx Alcohol Use: No - Smoking History Smoking history: Never smoked Have you smoked in the past 12 months: No Aproximately how many cigarettes per day: 0 If you are a former smoker, when did you quit?: 1985 - Social History Usual Living Arrangement: With Spouse ADL: Independent Occupation: Retired: worked for [employer] History of Recent Travel: No Home Medications - Allergies Allergies/Adverse Reactions: Allergies Allergy/AdvReac Type Severity Reaction Status Date / Time ibuprofen Allergy Severe Swelling Verified 06/28/18 16:35 Penicillins Allergy Verified 06/28/18 16:35 - Home Medications Home Medications: Ambulatory Orders Atorvastatin Ca [Lipitor] 80 mg PO HS 01/27/12 Tamsulosin HCl [Flomax -] 0.4 mg PO DAILY 12/30/13 Metoprolol Succinate [Toprol Xl] 50 mg PO BID 07/16/15 Amiodarone HCl [Cordarone -] 200 mg PO DAILY 06/28/18 Apixaban [Eliquis] 5 mg PO BID 06/28/18 Aspirin Coated [Ecotrin -] 81 mg PO DAILY 06/28/18 Furosemide [Lasix] 20 mg PO DAILY 06/28/18 Potassium Chloride [K-Dur -] 20 meq PO DAILY 06/28/18 Family Disease History - Family Disease History Family Disease History: Other: Father (: 76: renal failure), Mother (: 92: "natural causes") Other Family History: 11 siblings: 2 with pancreatic cancer, 1 with BCA, 1 liver cancer Review of Systems - Review of Systems Constitutional: reports: Chills, Fever, Loss of Appetite, Weakness Eyes: reports: No Symptoms HENT: reports: No Symptoms Neck: reports: No Symptoms Cardiovascular: reports: No Symptoms, Edema (chronic right greater then left). denies: Chest Pain Respiratory: denies: Cough, SOB Gastrointestinal: reports: Indigestion. denies: Abdominal Pain Genitourinary: reports: No Symptoms Musculoskeletal: reports: Other (left groin pain-much improved) Physical Exam Vital Signs: Vital Signs Temperature 102 F H 06/29/18 12:14 Pulse Rate 62 06/29/18 05:30 Respiratory Rate 20 06/29/18 10:00 Blood Pressure 108/48 L 06/29/18 05:30 O2 Sat by Pulse Oximetry (%) 96 06/29/18 10:00 Constitutional: Yes: Well Nourished, No Distress, Calm Eyes: Yes: Sclera Icterus HENT: Yes: Atraumatic, Normocephalic Neck: Yes: Supple Cardiovascular: Yes: Regular Rate and Rhythm, Murmur (2/6 tiffanie) Respiratory: Yes: Regular, CTA Bilaterally Gastrointestinal: Yes: Normal Bowel Sounds, Soft. No: Tenderness, Epigastrium ...Rectal Exam: Yes: Deferred Musculoskeletal: Yes: WNL, Other (left groin discomfort by report, no pain on palpation, FROM left hip, no knee swelling no hip erythema) Edema: Yes Edema: LLE: Trace, RLE: Trace Integumentary: Yes: WNL Wound/Incision: Yes: Other (sternal incision well healed- no erythema, leg incisions well healed, no erythema) Psychiatric: Yes: Alert, Oriented Labs: CBC, BMP 06/29/18 02:30 06/29/18 02:30 Laboratory Tests 06/29/18 02:30 Total Bilirubin 6.6 H AST 55 H ALT 77 H Alkaline Phosphatase 189 H blood cultures, urine cultures Imaging - Results Chest X-ray: Report Reviewed, Image Reviewed Ultrasound: Report Reviewed Problem List - Problems (1) Fever Code(s): R50.9 - FEVER, UNSPECIFIED (2) Abnormal LFTs Code(s): R79.89 - OTHER SPECIFIED ABNORMAL FINDINGS OF BLOOD CHEMISTRY (3) Left groin pain Code(s): R10.32 - LEFT LOWER QUADRANT PAIN (4) Penicillin allergy Code(s): Z88.0 - ALLERGY STATUS TO PENICILLIN Assessment/Plan suspect this is cholangitis given recent normal lfts in May groin pain by history appears musculoskeletal - would get hip xray, may need a ct scan as well based on results pen allergy tolerated cefepime would continue cefepime and flagyl for ERCP today (refuses MRCP) will follow with you d/w patient and at bedside
--- NOTE | 2018-06-29 14:57 | PN ---
Physical Exam: SUBJECTIVE: Patient seen and examined at bedside. patient is complaining of left hip/groin pain however he is not having any abdominal pain/nausea or vomiting- patient however did have another fever spike of 102 this afternoon. patient going fro ERCP this afternoon with Dr. Black; he denies any CP/SOB/ OBJECTIVE: Vital Signs Period Temp Pulse Resp BP Sys/Lujan Pulse Ox Last 24 Hr 97.9 F-102.3 F 62-81 18-28 104-159/47-79 94-96 GENERAL: The patient is awake, alert, and fully oriented, in no acute distress. EYES: PERRL, extraocular movements intact, sclera anicteric, conjunctiva clear. No ptosis. NECK: no JVD, no lymphadenopathy LUNGS: CTA B/L; no rales, rhonchi or wheezing. HEART: Regular rate and rhythm, S1, S2 without murmur, rub or gallop. ABDOMEN: Soft, nontender, nondistended, normoactive bowel sounds, no martinez's sign EXTREMITIES: warm; well-perfused, no clubbing/cyanosis or edema MUSCULOSKELETAL: + left sided hip/thigh pain PSYCH: Normal mood, normal affect. SKIN: Warm, dry, normal turgor, no rashes or lesions noted Laboratory Results - last 24 hr 06/28/18 06/28/18 06/28/18 16:35 17:00 17:00 WBC 8.4 RBC 3.74 L Hgb 10.1 L Hct 31.5 L D MCV 84.2 MCH 27.0 D MCHC 32.1 RDW 16.4 H D Plt Count 140 D MPV 10.2 D Absolute Neuts (auto) 7.5 Neutrophils % 89.6 H D Neutrophils % (Manual) Band Neutrophils % Lymphocytes % 4.5 L D Lymphocytes % (Manual) Monocytes % 3.7 L Monocytes % (Manual) Eosinophils % 0.1 D Eosinophils % (Manual) Basophils % 2.1 H D Basophils % (Manual) Myelocytes % (Man) Promyelocytes % (Man) Blast Cells % (Manual) Nucleated RBC % Metamyelocytes Hypochromia Platelet Estimate Polychromasia Poikilocytosis Anisocytosis Microcytosis Macrocytosis Schistocytes ESR PT with INR 27.2 H INR 2.47 H D PTT (Actin FS) 27.8 VBG pH POC VBG pCO2 POC VBG pO2 Mixed VBG HCO3 Sodium Potassium Chloride Carbon Dioxide Anion Gap BUN Creatinine Creat Clearance w eGFR Random Glucose Serum Osmolality Lactic Acid Calcium Phosphorus Magnesium Ferritin Total Bilirubin Direct Bilirubin AST ALT Alkaline Phosphatase Creatine Kinase Creatine Kinase Index CK-MB (CK-2) Troponin I C-Reactive Protein B-Natriuretic Peptide Total Protein Albumin Cholesterol Urine Color Yellow Urine Appearance Clear Urine pH 5.5 Ur Specific Queen 1.015 Urine Protein 1+ H Urine Glucose (UA) Negative Urine Ketones Negative Urine Blood 1+ H Urine Nitrite Negative Urine Bilirubin Negative Urine Urobilinogen 1.0 Ur Leukocyte Esterase Negative Urine RBC 2-5 Urine WBC 0-2 Ur Epithelial Cells Few Amorphous Urates 1+ Urine Osmolality Ur Random Sodium Urine Creatinine Influenza A (Rapid) Influenza B (Rapid) 06/28/18 06/28/18 06/28/18 17:00 17:00 17:00 WBC RBC Hgb Hct MCV MCH MCHC RDW Plt Count MPV Absolute Neuts (auto) Neutrophils % Neutrophils % (Manual) Band Neutrophils % Lymphocytes % Lymphocytes % (Manual) Monocytes % Monocytes % (Manual) Eosinophils % Eosinophils % (Manual) Basophils % Basophils % (Manual) Myelocytes % (Man) Promyelocytes % (Man) Blast Cells % (Manual) Nucleated RBC % Metamyelocytes Hypochromia Platelet Estimate Polychromasia Poikilocytosis Anisocytosis Microcytosis Macrocytosis Schistocytes ESR PT with INR INR PTT (Actin FS) VBG pH 7.41 POC VBG pCO2 38.9 POC VBG pO2 30.6 Mixed VBG HCO3 24.3 Sodium 128 L Potassium 3.1 L Chloride 96 L Carbon Dioxide 22 D Anion Gap 10 BUN 33 H Creatinine 1.6 H Creat Clearance w eGFR 41.69 Random Glucose 109 H Serum Osmolality Lactic Acid 1.2 Calcium 8.2 L Phosphorus Magnesium Ferritin Total Bilirubin 7.8 H Direct Bilirubin AST 70 H ALT 101 H Alkaline Phosphatase 170 H Creatine Kinase Creatine Kinase Index CK-MB (CK-2) Troponin I C-Reactive Protein B-Natriuretic Peptide Total Protein 7.5 Albumin 3.3 L Cholesterol Urine Color Urine Appearance Urine pH Ur Specific Queen Urine Protein Urine Glucose (UA) Urine Ketones Urine Blood Urine Nitrite Urine Bilirubin Urine Urobilinogen Ur Leukocyte Esterase Urine RBC Urine WBC Ur Epithelial Cells Amorphous Urates Urine Osmolality Ur Random Sodium Urine Creatinine Influenza A (Rapid) Influenza B (Rapid) 06/28/18 06/28/1806/28/18 17:00 17:00 17:00 WBC RBC Hgb Hct MCV MCH MCHC RDW Plt Count MPV Absolute Neuts (auto) Neutrophils % Neutrophils % (Manual) Band Neutrophils % Lymphocytes % Lymphocytes % (Manual) Monocytes % Monocytes % (Manual) Eosinophils % Eosinophils % (Manual) Basophils % Basophils % (Manual) Myelocytes % (Man) Promyelocytes % (Man) Blast Cells % (Manual) Nucleated RBC % Metamyelocytes Hypochromia Platelet Estimate Polychromasia Poikilocytosis Anisocytosis Microcytosis Macrocytosis Schistocytes ESR PT with INR INR PTT (Actin FS) VBG pH POC VBG pCO2 POC VBG pO2 Mixed VBG HCO3 Sodium Potassium Chloride Carbon Dioxide Anion Gap BUN Creatinine Creat Clearance w eGFR Random Glucose Serum Osmolality Lactic Acid Calcium Phosphorus Magnesium Ferritin Total Bilirubin Direct Bilirubin AST ALT Alkaline Phosphatase Creatine Kinase Creatine Kinase Index CK-MB (CK-2) Troponin I Cancelled 0.04 D C-Reactive Protein B-Natriuretic Peptide 2764.3 H Total Protein Albumin Cholesterol Urine Color Urine Appearance Urine pH Ur Specific Queen Urine Protein Urine Glucose (UA) Urine Ketones Urine Blood Urine Nitrite Urine Bilirubin Urine Urobilinogen Ur Leukocyte Esterase Urine RBC Urine WBC Ur Epithelial Cells Amorphous Urates Urine Osmolality Ur Random Sodium Urine Creatinine Influenza A (Rapid) Influenza B (Rapid) 06/28/18 06/29/18 06/29/18 17:30 02:30 02:30 WBC 7.8 RBC 3.33 L Hgb 8.7 L Hct 27.3 L MCV 81.9 MCH 26.1 MCHC 31.9 L RDW 17.6 H Plt Count 107 L MPV 9.4 Absolute Neuts (auto) 7.1 Neutrophils % 91.2 H Neutrophils % (Manual) 76.0 Band Neutrophils % 14.0 Lymphocytes % 3.6 L Lymphocytes % (Manual) 6.0 L Monocytes % 4.8 Monocytes % (Manual) 4 Eosinophils % 0.0 Eosinophils % (Manual) 0.0 Basophils % 0.4 Basophils % (Manual) 0.0 Myelocytes % (Man) 0 Promyelocytes % (Man) 0 Blast Cells % (Manual) 0 Nucleated RBC % 0 Metamyelocytes 0 Hypochromia 0 Platelet Estimate Decreased Polychromasia 0 Poikilocytosis 1+ Anisocytosis 1+ Microcytosis 1+ Macrocytosis 1+ Schistocytes 1+ ESR PT with INR INR PTT (Actin FS) VBG pH POC VBG pCO2 POC VBG pO2 Mixed VBG HCO3 Sodium 136 Potassium 3.0 L Chloride 101 Carbon Dioxide 23 Anion Gap 12 BUN 31 H Creatinine 1.5 H Creat Clearance w eGFR 44.92 Random Glucose 91 Serum Osmolality Lactic Acid Calcium 7.6 L Phosphorus 2.4 L Magnesium 2.1 Ferritin Total Bilirubin 6.6 H Direct Bilirubin AST 55 H ALT 77 H Alkaline Phosphatase 189 H Creatine Kinase Creatine Kinase Index CK-MB (CK-2) Troponin I C-Reactive Protein B-Natriuretic Peptide Total Protein 6.4 Albumin 2.7 L Cholesterol 92 Urine Color Urine Appearance Urine pH Ur Specific Queen Urine Protein Urine Glucose (UA) Urine Ketones Urine Blood Urine Nitrite Urine Bilirubin Urine Urobilinogen Ur Leukocyte Esterase Urine RBC Urine WBC Ur Epithelial Cells Amorphous Urates Urine Osmolality Ur Random Sodium Urine Creatinine Influenza A (Rapid) Negative Influenza B (Rapid) Negative 06/29/18 06/29/18 06/29/18 02:30 02:30 02:30 WBC RBC Hgb Hct MCV MCH MCHC RDW Plt Count MPV Absolute Neuts (auto) Neutrophils % Neutrophils % (Manual) Band Neutrophils % Lymphocytes % Lymphocytes % (Manual) Monocytes % Monocytes % (Manual) Eosinophils % Eosinophils % (Manual) Basophils % Basophils % (Manual) Myelocytes % (Man) Promyelocytes % (Man) Blast Cells % (Manual) Nucleated RBC % Metamyelocytes Hypochromia Platelet Estimate Polychromasia Poikilocytosis Anisocytosis Microcytosis Macrocytosis Schistocytes ESR 34 H PT with INR INR PTT (Actin FS) VBG pH POC VBG pCO2 POC VBG pO2 Mixed VBG HCO3 Sodium Potassium Chloride Carbon Dioxide Anion Gap BUN Creatinine Creat Clearance w eGFR Random Glucose Serum Osmolality 284 Lactic Acid Calcium Phosphorus Magnesium Ferritin 49.0 Total Bilirubin Direct Bilirubin AST ALT Alkaline Phosphatase Creatine Kinase Creatine Kinase Index CK-MB (CK-2) Troponin I C-Reactive Protein 9.9 H B-Natriuretic Peptide Total Protein Albumin Cholesterol Urine Color Urine Appearance Urine pH Ur Specific Queen Urine Protein Urine Glucose (UA) Urine Ketones Urine Blood Urine Nitrite Urine Bilirubin Urine Urobilinogen Ur Leukocyte Esterase Urine RBC Urine WBC Ur Epithelial Cells Amorphous Urates Urine Osmolality Ur Random Sodium Urine Creatinine Influenza A (Rapid) Influenza B (Rapid) 06/29/18 06/29/18 06/29/18 04:55 04:59 04:59 WBC RBC Hgb Hct MCV MCH MCHC RDW Plt Count MPV Absolute Neuts (auto) Neutrophils % Neutrophils % (Manual) Band Neutrophils % Lymphocytes % Lymphocytes % (Manual) Monocytes % Monocytes % (Manual) Eosinophils % Eosinophils % (Manual) Basophils % Basophils % (Manual) Myelocytes % (Man) Promyelocytes % (Man) Blast Cells % (Manual) Nucleated RBC % Metamyelocytes Hypochromia Platelet Estimate Polychromasia Poikilocytosis Anisocytosis Microcytosis Macrocytosis Schistocytes ESR PT with INR INR PTT (Actin FS) VBG pH POC VBG pCO2 POC VBG pO2 Mixed VBG HCO3 Sodium Potassium Chloride Carbon Dioxide Anion Gap BUN Creatinine Creat Clearance w eGFR Random Glucose Serum Osmolality Lactic Acid Calcium Phosphorus Magnesium Ferritin Total Bilirubin Direct Bilirubin AST ALT Alkaline Phosphatase Creatine Kinase Creatine Kinase Index CK-MB (CK-2) Troponin I C-Reactive Protein B-Natriuretic Peptide Total Protein Albumin Cholesterol Urine Color Urine Appearance Urine pH Ur Specific Queen Urine Protein Urine Glucose (UA) Urine Ketones Urine Blood Urine Nitrite Urine Bilirubin Urine Urobilinogen Ur Leukocyte Esterase Urine RBC Urine WBC Ur Epithelial Cells Amorphous Urates Urine Osmolality 408 Ur Random Sodium 27 L Urine Creatinine 66.0 H Influenza A (Rapid) Influenza B (Rapid) 06/29/18 06/29/18 12:19 12:44 WBC RBC Hgb Hct MCV MCH MCHC RDW Plt Count MPV Absolute Neuts (auto) Neutrophils % Neutrophils % (Manual) Band Neutrophils % Lymphocytes % Lymphocytes % (Manual) Monocytes % Monocytes % (Manual) Eosinophils % Eosinophils % (Manual) Basophils % Basophils % (Manual) Myelocytes % (Man) Promyelocytes % (Man) Blast Cells % (Manual) Nucleated RBC % Metamyelocytes Hypochromia Platelet Estimate Polychromasia Poikilocytosis Anisocytosis Microcytosis Macrocytosis Schistocytes ESR PT with INR 17.60 H INR 1.49 H PTT (Actin FS) VBG pH POC VBG pCO2 POC VBG pO2 Mixed VBG HCO3 Sodium Potassium Chloride Carbon Dioxide Anion Gap BUN Creatinine Creat Clearance w eGFR Random Glucose Serum Osmolality Lactic Acid Calcium Phosphorus Magnesium Ferritin Total Bilirubin Direct Bilirubin 4.9 H AST ALT Alkaline Phosphatase Creatine Kinase 152 Creatine Kinase Index 0.9 CK-MB (CK-2) 1.4 Troponin I C-Reactive Protein B-Natriuretic Peptide Total Protein Albumin Cholesterol Urine Color Urine Appearance Urine pH Ur Specific Queen Urine Protein Urine Glucose (UA) Urine Ketones Urine Blood Urine Nitrite Urine Bilirubin Urine Urobilinogen Ur Leukocyte Esterase Urine RBC Urine WBC Ur Epithelial Cells Amorphous Urates Urine Osmolality Ur Random Sodium Urine Creatinine Influenza A (Rapid) Influenza B (Rapid) Active Medications Generic Name Dose Route Start Last Admin Trade Name Freq PRN Reason Stop Dose Admin Acetaminophen 650 mg 06/29/18 01:33 06/29/18 11:56 Tylenol - PO 650 mg Q4H PRN Administration Fever Or Pain Cefepime HCl 2 gm/ Dextrose 100 mls @ 200 mls/hr 06/29/18 02:30 06/29/18 14: 34 IVPB 06/30/18 02:29 200 mls/hr BID ANTOINETTE Administration Protocol Metronidazole 500 mg in 100 mls @ 100 mls/hr 06/29/18 02:00 06/29/18 11:05 Flagyl 500mg Premixed Ivpb - IVPB 100 mls/hr Q8H-IV ANTOINETTE Administration Lactated Ringer's 1,000 ml in 1,000 mls @ 60 mls/hr 06/29/18 01:45 06/29/18 02:10 Lactated Ringers Solution IV 60 mls/hr ASDIR ANTOINETTE Administration Cefepime HCl 2 gm/ Dextrose 100 mls @ 200 mls/hr 06/30/18 10:00 IVPB 07/01/18 09:59 BID ANTOINETTE Protocol ASSESSMENT/PLAN: Patient is an 83 y/o male with PMH of HTN, Afib, CABG (s/p stents in 2012), HLD , BPH who presents to the ED with left groin pain found to be septic with elevated bilirubin, LFT's imaging showing gallblaer thickening with multiple stones, mild CBD dilatation, going for emergent ERCP with Dr. Black this afternoon. #Sepsis 2/2 possible cholangitis patient seen by Dr. Cosme and Dr. Black; patient is going for emergent ERCP this afternoon -received patients most recent labwork done on 06/08 his Tbilli was 1.7, AST: ALT 18:12, Alk Phos 94 -c/w cefepime and flagyl -ID on board -monitor Tbilli; LFTS -LR @60 mls/hr -surgery and GI recs appreciated -Hepatitis panel pending - #Afib holding eliquis for now -echo pending -hold until patient is hemodynamically stablr #HTN -holding all hypertensives for now until medically stable #hyponatremia -2/2 to sepsis vs. CHF ; patient euvolemic -resolved this am -will monitor #normocytic anemia -f/u iron studies -vitamin B 12 and folate levels F/E/N LR @60 mls/hr monitor electrolytes NPO for now Problem List - Problems (1) Fever Code(s): R50.9 - FEVER, UNSPECIFIED (2) Left groin pain Code(s): R10.32 - LEFT LOWER QUADRANT PAIN Visit type - Emergency Visit Emergency Visit: Yes ED Registration Date: 06/28/18 Care time: The patient presented to the Emergency Department on the above date and was hospitalized for further evaluation of their emergent condition. - New Patient This patient is new to me today: Yes Date on this admission: 06/29/18 - Critical Care Critical Care patient: No
--- NOTE | 2018-06-29 14:58 | PN ---
Progress Note (short form) - Note Progress Note: GI/ERCP addendum: I have not yet heard back from Chin[employer] but given that he is suspected to have ascending cholangitis and the high risk of lapsing into septic shock we will proceed with the ERCP to decompress suspect pus in the CBD.
[2018-06-29] MEDS ORDERED: ROCURONIUM BROMIDE 50 MG/5 ML VIAL ONE (15:04)
[2018-06-29] MEDS ORDERED: NEOSTIGMINE METHYLSULFATE 0.5 MG/ML - 10 ML MDV ONE (15:05)
[2018-06-29] MEDS ORDERED: GLYCOPYRROLATE 0.2 MG/1 ML VIAL ONE ×2 (15:05)
--- NOTE | 2018-06-29 15:12 | PN ---
Progress Note (short form) - Note Progress Note: GI/ERCP : I just received a call from Dr. Dante Darby the livestock counter. He confirms that Chin does not have significant aortic stenosis. He has a hypertrophic cardiomyopathy and good LV function. He also discussed jose antonio case with DR Mena. We will proceed with ERCP.
--- NOTE | 2018-06-29 15:51 | PN ---
Teaching Attending Note Name of Resident: Sherita Moncada ATTENDING PHYSICIAN STATEMENT I saw and evaluated the patient. I reviewed the resident's note and discussed the case with the resident. I agree with the resident's findings and plan as documented. SUBJECTIVE:multiple attempts to see patient but was done for procedure OBJECTIVE: Last Vital Signs Temp Pulse Resp BP Pulse Ox 98.6 F 66 18 120/53 L 96 06/29/18 14:00 06/29/18 14:00 06/29/18 14:00 06/29/18 14:00 06/29/18 10:00 ASSESSMENT AND PLAN: 83 y/o M with PMH afib on eliquis, CAD s/p CABG, HTN and presenting with fever and acute on chronic hyperbilirubinemia found to have sludge/stones and a 0.7cm CBD; suspected cholangitis. 1. sepsis due to suspected cholanigits- Tm 102.3. pt presentation of pain is not suggestive of cholangitis however with sepsis and hyperbilirubinemia with likely obstruction with lack of other source warrants treatment and further evaluation. check direct bili. plan for ERCP today and if unable to complete may need to consider cholecystectomy tube to allow for drainage. on Cefepime/ Flagyl. ID and GI on board 2. Hypercoagability- INR 2.5. possible in setting of liver obstruction. will give vit K po and FFP prior to ERCP. repeat INR 3. Groin pain- probably musculoskeletal. will check XR to evaluate for pathology if persists will need to consider further imaging 4. normocytic nameia- acute drop in Hgb appears dilutional. no signs of bleeding. check iron studies. no indication for transfusion 5. ADILENE- due to sepsis. IVF. avoid nephrotoxic medications. 6. Hyponatremia- dehydratoin. resolved 7. Hypokalemia- replete 8. afib on eliquis- rate controlled. hold eliquis at this time. can place on hep ggt if concern for risk of bleeding once no more procedures are planned 9. HTN- currently normotensive. hold oral agents 10. cad s/p cabg- no signs of acs. hold asa 11. - unknown how severe. check echo 12. DVT ppx- SCD. will start hep ggt once Hgb is stable.
[2018-06-29] MEDS ORDERED: IOHEXOL 300 MG/ML INFUS..BTL IV ONE (16:10)
[2018-06-29] MEDS ORDERED: PROMETHAZINE HCL 25 MG/1 ML VIAL IVPUSH PRN (17:03)
[2018-06-29] MEDS ORDERED: ONDANSETRON 4 MG/2 ML VIAL IVPUSH PRN (17:03)
[2018-06-29] MEDS ORDERED: oxyCODONE HCL 5 MG TABLET PO PRN (17:03)
--- NOTE | 2018-06-29 17:22 | ECHO ---
Name: SERGE SANCHEZ Exam:Adult Echocardiogram Study Date: 06/29/2018 10:12 AM Age: 83 yrs Reason For Study: R/O CHF Height: 67 in Weight: 240 lb BSA: 2.2 m2 MMode/2D Measurements & Calculations IVSd: 0.93 cm Ao root diam: 2.5 cm LVIDd: 5.4 cm LA dimension: 4.4 cm LVIDs: 4.0 cm LVPWd: 0.92 cm EDV(Teich): 140.1 ml LVOT diam: 2.5 cm ESV(Teich): 68.5 ml TAPSE: 2.2 cm RV S Jean Claude: 10.2 cm/sec Doppler Measurements & Calculations MV E max jean claude: 102.2 cm/sec Ao V2 max: 225.1 cm/sec MV A max jean claude: 49.4 cm/sec Ao max P.4 mmHg MV E/A: 2.1 Ao V2 mean: 162.8 cm/sec MV dec time: 0.34 sec Ao mean P.6 mmHg Ao V2 VTI: 49.6 cm TOM(I,D): 1.6 cm2 TOM(V,D): 2.0 cm2 LV V1 max P.2 mmHg MR max jean claude: 551.6 cm/sec LV V1 mean P.3 mmHg MR max P.7 mmHg LV V1 max: 88.8 cm/sec LV V1 mean: 53.6 cm/sec LV V1 VTI: 16.2 cm SV(LVOT): 81.7 ml TR max jean claude: 326.3 cm/sec TR max P.6 mmHg Med Peak E' Jean Claude: 9.0 cm/sec Med E/e': 11.4 Lat Peak E' Jean Claude: 8.7 cm/sec Lat E/e': 11.8 Procedure A complete two-dimensional transthoracic echocardiogram was performed (2D, M-mode, Doppler and color flow Doppler). Technically limited study. Left Ventricle The left ventricle is normal in size. Left ventricular systolic function is mildly reduced. Ejection Fraction = 45-50%. Regional wall motion could not be accurately assessed but appears to be mildly reduced. Right Ventricle The right ventricle is normal size. The right ventricular systolic function is normal. RV systolic TD I is 10 cm/s. Atria The left atrium is mildly dilated. Right atrial size is normal. Mitral Valve There is mild mitral annular calcification. There is no mitral regurgitation noted. Tricuspid Valve The tricuspid valve is normal in structure and function. There is mild tricuspid regurgitation. Pulmo nary artery systolic pressure is at least 50 mmHg assuming RA pressure of 3 mmHg. Aortic Valve There is mild aortic valve thickening. Mild valvular aortic stenosis. The calculated aortic valve are a using the continuity equation is 1.5 cm2. Aortic mean pressure gradient= 12 mmHg. DI (dimensionless index) is 0.3. No aortic regurgitation is present. Pulmonic Valve The pulmonic valve is not well visualized. Great Vessels The aortic root is normal size. Pericardium/Pleura There is no pericardial effusion. Interpretation Summary Technically limited study The left ventricle is normal in size. Left ventricular systolic function is mildly reduced. Regional wall motion could not be accurately assessed but appears to be mildly reduced Ejection Fraction = 45-50%. The right ventricular systolic function is normal. The left atrium is mildly dilated. Right atrial size is normal. There is mild mitral annular calcification. There is mild tricuspid regurgitation. Pulmonary artery systolic pressure is at least 50 mmHg assuming RA pressure of 3 mmHg There is mild aortic valve thickening. Mild valvular aortic stenosis. The calculated aortic valve area using the continuity equation is 1.5 cm2. Aortic mean pressure gradient= 12 mmHg DI (dimensionless index) is 0.3 No aortic regurgitation is present. There is no pericardial effusion. Previous study is not available for comparison Ras Fan MD 06/29/2018 05:21 PM
--- NOTE | 2018-06-29 17:52 | PN ---
Progress Note (short form) - Note Progress Note: GI Procedure NOte: Please see ERCP report. In the report I alluded to a lost stent. In the interim that stent was found to be within the ERCP scope channel and not within Chin. The ERCP was made very difficult by the anatomy that revealed the papilla to be in the edge and projecting into a diverticulum. Pus and a stone were found in the common bile duct so a stent was inserted. Given the anatomical challenge I have advised that he have his ERCP for stone extraction to be done at a tertiary care center.
[2018-06-29] MEDS ORDERED: FUROSEMIDE 40 MG/4 ML INJECTABLE VIAL IVPUSH ONE (18:15)
--- NOTE | 2018-06-29 18:20 | EKG ---
Test Reason : Blood Pressure : / mmHG Vent. Rate : 062 BPM Atrial Rate : 062 BPM P-R Int : 148 ms QRS Dur : 094 ms QT Int : 482 ms P-R-T Axes : 039 -13 075 degrees QTc Int : 489 ms NORMAL SINUS RHYTHM MINIMAL VOLTAGE CRITERIA FOR LVH, MAY BE NORMAL VARIANT T WAVE ABNORMALITY, CONSIDER LATERAL ISCHEMIA PROLONGED QT ABNORMAL ECG WHEN COMPARED WITH ECG OF 28-JUN-2018 17:45, PREMATURE SUPRAVENTRICULAR COMPLEXES ARE NO LONGER PRESENT Confirmed by SKYLER CESPEDES MD ([id number]) on 06/29/2018 6:20:37 PM Referred By: Jerry CORTES Confirmed By:SKYLER CESPEDES MD
--- NOTE | 2018-06-29 23:52 | EKG ---
Test Reason : Blood Pressure : / mmHG Vent. Rate : 069 BPM Atrial Rate : 069 BPM P-R Int : 146 ms QRS Dur : 094 ms QT Int : 494 ms P-R-T Axes : 049 -13 042 degrees QTc Int : 529 ms SINUS RHYTHM WITH PREMATURE SUPRAVENTRICULAR COMPLEXES LEFT VENTRICULAR HYPERTROPHY WITH REPOLARIZATION ABNORMALITY ABNORMAL ECG NO PREVIOUS ECGS AVAILABLE Confirmed by SKYLER CESPEDES MD ([id number]) on 06/29/2018 11:51:49 PM Referred By: JAYA Confirmed By:SKYLER CESPEDES MD
[2018-06-30] MEDS: LACTATED RINGERS SOLUTION 1,000 ML/1,000 ML INFUS.BAG IV SCH (01:28)
[2018-06-30] MEDS ORDERED: PT OWN MED DRAWER 7, Y5N ONE ×2 (04:37→21:42)
[2018-06-30 06:06] LABS: HEP.C VIRUS AB 0.1 s/co ratio (0.0-0.9); SERUM IRON SATURATION 7 % (15-55); TOTAL IRON BINDING CAPACITY 319 ug/dL (250-450); UIBC 298 ug/dL (111-343)
[2018-06-30 06:42] LABS: BASO % 0.5 % (0-2.0); EOS % 0.2 % (0-4.5); HEMATOCRIT 27.2 % (35.4-49); HEMOGLOBIN 8.7 GM/dL (11.7-16.9); LYMPH % 10.8 % (8-40); MCH 26.1 pg (25.7-33.7); MCHC 31.8 g/dl (32.0-35.9); MEAN PLT VOLUME 8.7 fl (7.5-11.1); MONO % 9.3 % (3.8-10.2); NEUT % 79.2 % (42.8-82.8); PLATELET COUNT 95 K/MM3 (134-434); RBC 3.32 M/mm3 (4.00-5.60); RDW 17.3 % (11.9-15.9); RETICULOCYTES 0.88 % (0.5-1.5); WHITE BLOOD COUNT 4.7 K/mm3 (4.0-10.0)
[2018-06-30 06:46] LABS: INR 1.28 (0.83-1.09); PROTHROMBIN TIME (PATIENT) 15.1 SEC (9.7-13.0)
[2018-06-30 08:09] LABS: ALBUMIN 2.6 g/dl (3.4-5.0); ALK PHOS 222 U/L (45-117); ANION GAP 12 MMOL/L (8-16); BILIRUBIN,DIRECT 5.2 mg/dL (0.0-0.2); BILIRUBIN,TOTAL 7.6 mg/dL (0.2-1); BLOOD UREA NITROGEN 22 mg/dL (7-18); CALCIUM 7.6 mg/dL (8.5-10.1); CHLORIDE 99 mmol/L (98-107); CO2 25 mmol/L (21-32); CREATININE 1.5 mg/dL (0.55-1.3); GLUCOSE,RANDOM 85 mg/dL (74-106); LDH 198 U/L (87-246); MAGNESIUM 2.1 mg/dL (1.8-2.4); PHOSPHOROUS 1.5 mg/dL (2.5-4.9); SGOT/AST 54 U/L (15-37); SGPT/ALT 65 U/L (13-61); SODIUM 137 mmol/L (136-145); TOT PROT 6.4 g/dl (6.4-8.2)
[2018-06-30] MEDS ORDERED: NAPH,MB-DB/K PH,MBDB POWDER PACKET PO ONE (08:16)
[2018-06-30 08:25] LABS: POTASSIUM 2.9 mmol/L (3.5-5.1)
[2018-06-30] MEDS ORDERED: POTASSIUM CHLORIDE TABS 20 MEQ TABLET.ER (FP) PO ONE (08:34)
[2018-06-30] MEDS ORDERED: KCL 10 MEQ IVPB 10 MEQ/100 ML INFUS.BAG IVPB SCH (08:45)
--- NOTE | 2018-06-30 08:50 | PN ---
Progress Note (short form) - Note Progress Note: Anesthesia POD#1 S/P ERCP under [facility] VSS,no N/V,no injuries,no pain. No Complications to anesthesia seen. Crystal Benton MD.
--- NOTE | 2018-06-30 09:27 | PN ---
Progress Note, Physician Chief Complaint: cholangitis History of Present Illness: 83yo male PMH morbid obsity, HTN, HLD, BPH, , afib, and CABG in February who presents for groin pain. stable after ERCP - Current Medication List Current Medications: Active Medications Acetaminophen (Tylenol -) 650 mg PO Q4H PRN PRN Reason: Fever Or Pain Last Admin: 06/29/18 11:56 Dose: 650 mg Metronidazole (Flagyl 500mg Premixed Ivpb -) 500 mg in 100 mls @ 100 mls/hr IVPB Q8H-IV ANTOINETTE Last Admin: 06/30/18 01:26 Dose: 100 mls/hr Lactated Ringer's (Lactated Ringers Solution) 1,000 ml in 1,000 mls @ 60 mls/ hr IV ASDIR ANTOINETTE Last Admin: 06/30/18 01:28 Dose: 60 mls/hr Cefepime HCl 2 gm/ Dextrose 100 mls @ 200 mls/hr IVPB BID ANTOINETTE; Protocol Last Admin: 06/29/18 22:00 Dose: 200 mls/hr Potassium Chloride (Potassium Chloride 10 Meq Premix Ivpb -) 10 meq in 100 mls @ 100 mls/hr IVPB Q60M ANTOINETTE Stop: 06/30/18 09:44 Oxycodone HCl (Roxicodone -) 5 mg PO Q4H PRN PRN Reason: PAIN LEVEL 1-5 - Objective Vital Signs: Vital Signs Temperature 98.0 F 06/30/18 08:50 Pulse Rate 62 06/30/18 08:50 Respiratory Rate 16 06/30/18 08:50 Blood Pressure 130/54 L 06/30/18 08:50 O2 Sat by Pulse Oximetry (%) 97 06/29/18 20:33 Constitutional: Yes: Well Nourished, No Distress, Calm Eyes: Yes: Conjunctiva Clear, EOM Intact HENT: Yes: Atraumatic, Normocephalic Neck: Yes: Supple, Trachea Midline Cardiovascular: Yes: Regular Rate and Rhythm, S1, S2 Respiratory: Yes: Regular, CTA Bilaterally Gastrointestinal: Yes: Normal Bowel Sounds, Soft, Abdomen, Obese. No: Tenderness, Tenderness, Epigastrium, Tenderness, Rebound ...Rectal Exam: Yes: Deferred Genitourinary: No: CVA Tenderness - Left, CVA Tenderness - Right Breast(s): No: Other Musculoskeletal: No: Muscle Weakness Extremities: No: Cool, Cyanosis Edema: No Peripheral Pulses WNL: Yes Peripheral Pulses: Left Radial: 2+, Right Radial: 2+, Left Doralis Pedis: 2+, Right Dorsalis Pedis: 2+ Integumentary: No: Jaundice, Rash, Tattoos Neurological: Yes: Alert, Oriented Psychiatric: Yes: Alert, Oriented Labs: CBC, BMP 06/30/18 06:00 06/30/18 06:00 INR, PTT INR 1.28 (0.83-1.09) H 06/30/18 06:00 Problem List - Problems (1) Cholangitis Assessment/Plan: 83yo male MMP with cholelithiasis possible choledocholithiasis causing a cholangitis Tbili>6, Dbili >4 with transaminititis, fatty changes on imaging. he has no abdominal tendernenss on exam. Reviewed GI notes. agree with transfer to tertiary care. He can also have his surgery at that center. NPO and IVF hydration IV antibiotics Transfer for ERCP at tertiary care center. Recall as needed Code(s): K83.09 - OTHER CHOLANGITIS (2) Abnormal LFTs Code(s): R79.89 - OTHER SPECIFIED ABNORMAL FINDINGS OF BLOOD CHEMISTRY (3) Aortic stenosis Code(s): Q25.3 - SUPRAVALVULAR AORTIC STENOSIS (4) Atrial fibrillation with rapid ventricular response Code(s): I48.91 - UNSPECIFIED ATRIAL FIBRILLATION (5) Chest pain Code(s): R07.9 - CHEST PAIN, UNSPECIFIED
--- NOTE | 2018-06-30 10:31 | EKG ---
Test Reason : Blood Pressure : / mmHG Vent. Rate : 059 BPM Atrial Rate : 059 BPM P-R Int : 138 ms QRS Dur : 090 ms QT Int : 530 ms P-R-T Axes : 048 -11 -33 degrees QTc Int : 524 ms POOR DATA QUALITY, INTERPRETATION MAY BE ADVERSELY AFFECTED SINUS BRADYCARDIA VOLTAGE CRITERIA FOR LEFT VENTRICULAR HYPERTROPHY T WAVE ABNORMALITY, CONSIDER ANTEROLATERAL ISCHEMIA ABNORMAL ECG WHEN COMPARED WITH ECG OF 29-JUN-2018 15:33, NO SIGNIFICANT CHANGE WAS FOUND Confirmed by Jerman Peterson MD ([id number]) on 06/30/2018 10:31:25 AM Referred By: BAIRON ROJO DR Confirmed By:Jerman Peterson MD
--- NOTE | 2018-06-30 11:44 | PN ---
Physical Exam: SUBJECTIVE: Patient seen and examined at bedside. no acute events overnight; patient is stable post-ERCP yesterday and is not is any pain. he is going today to get an XRAY of his hip/pelvis. he has not had anymore fever spikes overnight and is not in any pain. he denies any CP/SOB/N/V fevers or chills. OBJECTIVE: Vital Signs Period Temp Pulse Resp BP Sys/Lujan Pulse Ox Last 24 Hr 98.0 F-102 F 62-85 16-24 117-170/53-97 97-100 GENERAL: The patient is awake, alert, and fully oriented, in no acute distress. EYES: no scleral icterus ENTL dry blood in left ear canal NECK: no JVD, no lymphadenopathy. LUNGS:CTA B/L; no rales, rhonchi or wheezing HEART: Regular rate and rhythm, S1, S2 without murmur, rub or gallop. ABDOMEN: Soft, nontender, nondistended, normoactive bowel sounds, no guarding, no rebound, no hepatosplenomegaly, no masses. EXTREMITIES: 2+ pulses, warm, well-perfused, no edema. PSYCH: Normal mood, normal affect. SKIN: Warm, dry, normal turgor, no rashes or lesions noted Laboratory Results - last 24 hr 06/29/18 06/29/18 06/29/18 02:30 02:30 02:30 WBC RBC Hgb Hct MCV MCH MCHC RDW Plt Count MPV Absolute Neuts (auto) Neutrophils % Neutrophils % (Manual) 76.0 Band Neutrophils % 14.0 Lymphocytes % Lymphocytes % (Manual) 6.0 L Monocytes % Monocytes % (Manual) 4 Eosinophils % Eosinophils % (Manual) 0.0 Basophils % Basophils % (Manual) 0.0 Myelocytes % (Man) 0 Promyelocytes % (Man) 0 Blast Cells % (Manual) 0 Nucleated RBC % Metamyelocytes 0 Hypochromia 0 Platelet Estimate Decreased Polychromasia 0 Poikilocytosis 1+ Anisocytosis 1+ Microcytosis 1+ Macrocytosis 1+ Schistocytes 1+ Retic Count PT with INR INR Sodium Potassium Chloride Carbon Dioxide Anion Gap BUN Creatinine Creat Clearance w eGFR Random Glucose Calcium Phosphorus Magnesium Iron 21 L TIBC 319 Iron Saturation 7 L Ferritin Total Bilirubin Direct Bilirubin AST ALT Alkaline Phosphatase LD Total Creatine Kinase Creatine Kinase Index CK-MB (CK-2) C-Reactive Protein Total Protein Albumin Total Amylase Lipase Hepatitis A IgM Ab Negative Hep Bs Antigen Negative Hep B Core IgM Ab Negative Hepatitis C Antibody 0.1 Blood Type Antibody Screen 06/29/18 06/29/18 06/29/18 12:19 12:44 13:05 WBC RBC Hgb Hct MCV MCH MCHC RDW Plt Count MPV Absolute Neuts (auto) Neutrophils % Neutrophils % (Manual) Band Neutrophils % Lymphocytes % Lymphocytes % (Manual) Monocytes % Monocytes % (Manual) Eosinophils % Eosinophils % (Manual) Basophils % Basophils % (Manual) Myelocytes % (Man) Promyelocytes % (Man) Blast Cells % (Manual) Nucleated RBC % Metamyelocytes Hypochromia Platelet Estimate Polychromasia Poikilocytosis Anisocytosis Microcytosis Macrocytosis Schistocytes Retic Count PT with INR 17.60 H INR 1.49 H Sodium Potassium Chloride Carbon Dioxide Anion Gap BUN Creatinine Creat Clearance w eGFR Random Glucose Calcium Phosphorus Magnesium Iron TIBC Iron Saturation Ferritin Total Bilirubin Direct Bilirubin 4.9 H AST ALT Alkaline Phosphatase LD Total Creatine Kinase 152 Creatine Kinase Index 0.9 CK-MB (CK-2) 1.4 C-Reactive Protein Total Protein Albumin Total Amylase Lipase Hepatitis A IgM Ab Hep Bs Antigen Hep B Core IgM Ab Hepatitis C Antibody Blood Type A POSITIVE Antibody Screen 06/29/18 06/30/18 06/30/18 13:10 06:00 06:00 WBC RBC Hgb Hct MCV MCH MCHC RDW Plt Count MPV Absolute Neuts (auto) Neutrophils % Neutrophils % (Manual) Band Neutrophils % Lymphocytes % Lymphocytes % (Manual) Monocytes % Monocytes % (Manual) Eosinophils % Eosinophils % (Manual) Basophils % Basophils % (Manual) Myelocytes % (Man) Promyelocytes % (Man) Blast Cells % (Manual) Nucleated RBC % Metamyelocytes Hypochromia Platelet Estimate Polychromasia Poikilocytosis Anisocytosis Microcytosis Macrocytosis Schistocytes Retic Count PT with INR INR Sodium 137 Potassium 2.9 L* Chloride 99 Carbon Dioxide 25 Anion Gap 12 BUN 22 H Creatinine 1.5 H Creat Clearance w eGFR 44.92 Random Glucose 85 Calcium 7.6 L Phosphorus 1.5 L Magnesium 2.1 Iron TIBC Iron Saturation Ferritin 68.8 Total Bilirubin 7.6 H Direct Bilirubin 5.2 H AST 54 H ALT 65 H Alkaline Phosphatase 222 H LD Total 198 Creatine Kinase Creatine Kinase Index CK-MB (CK-2) C-Reactive Protein 9.1 H Total Protein 6.4 Albumin 2.6 L Total Amylase 70 Lipase 250 Hepatitis A IgM Ab Hep Bs Antigen Hep B Core IgM Ab Hepatitis C Antibody Blood Type A POSITIVE Antibody Screen Negative 06/30/18 06/30/18 06:00 06:00 WBC 4.7 RBC 3.32 L Hgb 8.7 L Hct 27.2 L MCV 82.0 MCH 26.1 MCHC 31.8 L RDW 17.3 H Plt Count 95 L MPV 8.7 Absolute Neuts (auto) 3.7 Neutrophils % 79.2 Neutrophils % (Manual) Band Neutrophils % Lymphocytes % 10.8 D Lymphocytes % (Manual) Monocytes % 9.3 D Monocytes % (Manual) Eosinophils % 0.2 D Eosinophils % (Manual) Basophils % 0.5 Basophils % (Manual) Myelocytes % (Man) Promyelocytes % (Man) Blast Cells % (Manual) Nucleated RBC % 0 Metamyelocytes Hypochromia Platelet Estimate Polychromasia Poikilocytosis Anisocytosis Microcytosis Macrocytosis Schistocytes Retic Count 0.88 PT with INR 15.10 H INR 1.28 H Sodium Potassium Chloride Carbon Dioxide Anion Gap BUN Creatinine Creat Clearance w eGFR Random Glucose Calcium Phosphorus Magnesium Iron TIBC Iron Saturation Ferritin Total Bilirubin Direct Bilirubin AST ALT Alkaline Phosphatase LD Total Creatine Kinase Creatine Kinase Index CK-MB (CK-2) C-Reactive Protein Total Protein Albumin Total Amylase Lipase Hepatitis A IgM Ab Hep Bs Antigen Hep B Core IgM Ab Hepatitis C Antibody Blood Type Antibody Screen Active Medications Generic Name Dose Route Start Last Admin Trade Name Freq PRN Reason Stop Dose Admin Acetaminophen 650 mg 06/29/18 01:33 06/29/18 11:56 Tylenol - PO 650 mg Q4H PRN Administration Fever Or Pain Metronidazole 500 mg in 100 mls @ 100 mls/hr 06/29/18 02:00 06/30/18 11:26 Flagyl 500mg Premixed Ivpb - IVPB 100 mls/hr Q8H-IV ANTOINETTE Administration Lactated Ringer's 1,000 ml in 1,000 mls @ 60 mls/hr 06/29/18 01:45 06/30/18 01:28 Lactated Ringers Solution IV 60 mls/hr ASDIR ANTOINETTE Administration Cefepime HCl 2 gm/ Dextrose 100 mls @ 200 mls/hr 06/29/18 22:00 06/29/18 22: 00 IVPB 200 mls/hr BID ANTOINETTE Administration Protocol Oxycodone HCl 5 mg 06/29/18 17:03 Roxicodone - PO Q4H PRN PAIN LEVEL 1-5 ASSESSMENT/PLAN: Patient is an 83 y/o male with PMH of HTN, Afib, CABG (s/p stents in 2012), HLD , BPH who presents to the ED with left groin pain found to be septic with elevated bilirubin, LFT's imaging showing gallblaer thickening with multiple stones, mild CBD dilatation,is now s/p ERCP done yesterday. #Sepsis 2/2 possible cholangitis patient seen by Dr. Cosme and Dr. Black; went for ERCP yesterday -Dr. Jett wants patient upon discharge to go to [facility], [place] for another ERCP and possible lap choley; wants to treat cholangitis first -received patients most recent labwork done on 06/08 his Tbilli was 1.7, AST: ALT 18:12, Alk Phos 94 -c/w cefepime and flagyl -ID on board -monitor Tbilli; LFTS -LR @60 mls/hr -surgery and GI recs appreciated -Hepatitis panel pending #Afib holding eliquis for now -echo pending -hold until patient is hemodynamically stable #Hip Pain -patient had hip/pelvis XRAY done today which does not show any acute pathology. #HTN -holding all hypertensives for now until medically stable #hyponatremia -2/2 to sepsis vs. CHF ; patient euvolemic -resolved this am -will monitor #normocytic anemia -f/u iron studies -vitamin B 12 and folate levels F/E/N LR @60 mls/hr monitor electrolytes clear liquids Problem List - Problems (1) Fever Code(s): R50.9 - FEVER, UNSPECIFIED (2) Left groin pain Code(s): R10.32 - LEFT LOWER QUADRANT PAIN Visit type - Emergency Visit Emergency Visit: Yes ED Registration Date: 06/28/18 Care time: The patient presented to the Emergency Department on the above date and was hospitalized for further evaluation of their emergent condition. - New Patient This patient is new to me today: No - Critical Care Critical Care patient: No
[2018-06-30] MEDS: CEFEPIME 2 GM in DEXTROSE 5%-WATER 100 ML IVPB SCH ×2 (13:03→21:47)
[2018-06-30 13:16] LABS: ANION GAP 7 MMOL/L (8-16); BLOOD UREA NITROGEN 20 mg/dL (7-18); CALCIUM 8.3 mg/dL (8.5-10.1); CHLORIDE 98 mmol/L (98-107); CO2 29 mmol/L (21-32); CREATININE 1.4 mg/dL (0.55-1.3); GLUCOSE,RANDOM 95 mg/dL (74-106); POTASSIUM 3.7 mmol/L (3.5-5.1); SODIUM 134 mmol/L (136-145)
--- NOTE | 2018-06-30 15:07 | PN ---
Teaching Attending Note Name of Resident: Sherita Moncada ATTENDING PHYSICIAN STATEMENT I saw and evaluated the patient. I reviewed the resident's note and discussed the case with the resident. I agree with the resident's findings and plan as documented with exceptions below. SUBJECTIVE: Patient seen and examined. no nausea, vomiting, abdominal pain, tolerating diet well. Reports some bleeding from left ear and some decreased hearing. OBJECTIVE: Vital Signs Period Temp Pulse Resp BP Sys/Lujan Pulse Ox Last 24 Hr 98.0 F-100.4 F 62-85 16-24 117-170/53-97 97-100 Intake & Output 06/27/18 06/28/18 06/29/18 06/30/18 23:59 23:59 23:59 23:59 Intake Total 750 2740 1290 Output Total 440 3625 750 Balance 310 -885 540 Weight 240 lb General: sitting in chair in no acute distress Chest: CTAB, no rales or wheezing HEENT: otoscopic exam left ear, bleeding witih few small clots with sloughing external ear canal, full tympanic membrane exam, limited by bleeding but no visible perforation, minimal tenderness on exam, no pain on external ear movements. Abdomen:soft, NT, ND, positive bowel sounds, no voluntary or involuntary guarding or rigidity Extremities: no edema Home Medications Medication Instructions Recorded Atorvastatin Ca [Lipitor] 80 mg PO HS 01/27/12 Tamsulosin HCl [Flomax -] 0.4 mg PO DAILY 12/30/13 Metoprolol Succinate [Toprol Xl] 50 mg PO BID 07/16/15 Amiodarone HCl [Cordarone -] 200 mg PO DAILY 06/28/18 Apixaban [Eliquis] 5 mg PO BID 06/28/18 Aspirin Coated [Ecotrin -] 81 mg PO DAILY 06/28/18 Furosemide [Lasix] 20 mg PO DAILY 06/28/18 Potassium Chloride [K-Dur -] 20 meq PO DAILY 06/28/18 Active Medications Acetaminophen (Tylenol -) 650 mg PO Q4H PRN PRN Reason: Fever Or Pain Last Admin: 06/29/18 11:56 Dose: 650 mg Metronidazole (Flagyl 500mg Premixed Ivpb -) 500 mg in 100 mls @ 100 mls/hr IVPB Q8H-IV ANTOINETTE Last Admin: 06/30/18 11:26 Dose: 100 mls/hr Lactated Ringer's (Lactated Ringers Solution) 1,000 ml in 1,000 mls @ 60 mls/ hr IV ASDIR ANTOINETTE Last Admin: 06/30/18 01:28 Dose: 60 mls/hr Cefepime HCl 2 gm/ Dextrose 100 mls @ 200 mls/hr IVPB BID ANTOINETTE; Protocol Last Admin: 06/30/18 13:03 Dose: 200 mls/hr Oxycodone HCl (Roxicodone -) 5 mg PO Q4H PRN PRN Reason: PAIN LEVEL 1-5 ASSESSMENT AND PLAN: 83 y/o M with PMH afib on eliquis, CAD s/p CABG, HTN and admitted with choledocholithiasis/Acute cholangitis -Acute cholangitis s/p ERCP with stent placement 06/29, unable to retrieve stones -Choledochohilithiasis -Atrial fibrillation on eliquis -Normocytic anemia -ADILENE, likely from sepsis/hypovolumia, improved -Hypovolumic hyponatremia -Hypokalemia 0HTN -CAD s/p CABG in 02/2018 -Aortic stenosis -Left ear bleed, suspect external canal, ?traumatic, has sloughing with mild bleed in external auditory canal. Plan: Discussed with Dr. Black. ERCP successful in stent placement and decompressing pus but given complicated anatomy, unable to retrieve stones. Given improved fevers/WBC, and overall unchanged LFTs (suspects neal prior to procedure might be higher and is now improving as patient is clinically better). Recommend IV abx, and if continues to improve with neg blood cx over next 24-48 hours, plan for d/c on oral abx per ID recs with outpatient follow up at tertiary care center for eventual stone extraction followed by cholecystectomy. risk of recurrent cholangitis low as discussed given stent in place. Cefepime/flagyl. Replete K. Monitor renal function. ENT consult and monitor for now. Patient advised to avoid picking or foreign body in the ear. Monitor coags. DVTPPX on hold pending above, SCDs.. dispo d/c home in 24 -48 hours if continues to improve. Plan discussed with patient in detail, all questions answered.
--- NOTE | 2018-06-30 17:43 | PN ---
Progress Note (short form) - Note Progress Note: oob in chair no fevers feels well Vital Signs Period Temp Pulse Resp BP Sys/Lujan Pulse Ox Last 24 Hr 98.0 F-99.2 F 62-73 16-20 124-142/53-78 97-97 cor-rrr lungs clear abd soft,nt ext no edema CBC, BMP 06/30/18 06:00 06/30/18 12:10 Microbiology 06/28/18 17:00 Blood - Peripheral Venous Blood Culture - Preliminary NO GROWTH OBTAINED AFTER 48 HOURS, INCUBATION TO CONTINUE FOR 3 DAYS. 06/28/18 16:45 Blood - Peripheral Venous Blood Culture - Preliminary NO GROWTH OBTAINED AFTER 48 HOURS, INCUBATION TO CONTINUE FOR 3 DAYS. 06/28/18 16:35 Urine - Urine Clean Catch Urine Culture - Final NO GROWTH OBTAINED a/p s/p ERCP afebrile, starting to feel better trend LFTS continue cefepime/flagyl pen allergy Problem List - Problems (1) Fever Code(s): R50.9 - FEVER, UNSPECIFIED (2) Abnormal LFTs Code(s): R79.89 - OTHER SPECIFIED ABNORMAL FINDINGS OF BLOOD CHEMISTRY (3) Left groin pain Code(s): R10.32 - LEFT LOWER QUADRANT PAIN (4) Penicillin allergy Code(s): Z88.0 - ALLERGY STATUS TO PENICILLIN
--- NOTE | 2018-06-30 18:27 | PN ---
GI Progress Note Subjective: No acute events Sitting in chair, no focal complaints - Objective Vital Signs: Vital Signs Temperature 98.3 F 06/30/18 14:00 Pulse Rate 68 06/30/18 14:00 Respiratory Rate 16 06/30/18 14:00 Blood Pressure 129/78 06/30/18 14:00 O2 Sat by Pulse Oximetry (%) 97 06/29/18 20:33 Constitutional: Calm Eyes: No: Sclera Icterus Cardiovascular: Yes: Regular Rate and Rhythm Respiratory: Yes: CTA Bilaterally Gastrointestinal Inspection: No: Distention ...Auscultate: Yes: Normoactive Bowel Sounds ...Palpate: Yes: Tenderness Edema: No Neurological: Yes: Alert Labs: CBC, BMP 06/30/18 06:00 06/30/18 12:10 INR, PTT INR 1.28 (0.83-1.09) H 06/30/18 06:00 Hepatic Panel Total Bilirubin 7.6 mg/dL (0.2-1) H 06/30/18 06:00 Direct Bilirubin 5.2 mg/dL (0.0-0.2) H 06/30/18 06:00 AST 54 U/L (15-37) H 06/30/18 06:00 ALT 65 U/L (13-61) H 06/30/18 06:00 Alkaline Phosphatase 222 U/L (45-117) H 06/30/18 06:00 Albumin 2.6 g/dl (3.4-5.0) L 06/30/18 06:00 Problem List - Problems (1) Cholangitis Assessment/Plan: Distal CBD stone noted on cholangiogram along with pus expressed from CBD during ERCP. ALP/Bili higher today but ? if this reflects higher numbers during the time of ERCP. Clinically much improved and afebrile Monitor LFTs. if normalizing trend, advance diet in AM Code(s): K83.09 - OTHER CHOLANGITIS
--- NOTE | 2018-06-30 19:08 | CON.ENT ---
Consult Consult Specialty:: ENT Referred by:: Dr. Jean Reason for Consultation:: left ear bleeding - History of Present Illness Chief Complaint: left ear bleeding History of Present Illness: 83 yo M hx bilateral sensorineural hearing loss, has been stable recently noted to have blood from left ear canal has been on Eliquis, being held today? NO pain, no purulence, no change in his baseline hearing hx ear evaluation by Dr. Attila Santos in our group, last audiogram , shows bilateral high frequency sensorineural hearing loss both ears, symmetric , with good speech discrimination, tympanograms WNL indicating no middle ear fluid and normal Eustachian tube function - History Source History Provided By: Patient, Family Member, Medical Record - Past Medical History Cardio/Vascular: Yes: CAD, HTN, Hyperlipdemia, AL Additional Medical History: obesity - Past Surgical History Past Surgical History: Yes: Appendectomy, CABG (spent two weeks at [facility] ), Cataract Removal - Alcohol/Substance Use Hx Alcohol Use: No - Smoking History Smoking history: Never smoked Have you smoked in the past 12 months: No Aproximately how many cigarettes per day: 0 If you are a former smoker, when did you quit?: 1985 - Social History Usual Living Arrangement: With Spouse ADL: Independent Occupation: Retired: worked for [employer] History of Recent Travel: No Home Medications - Allergies Allergies/Adverse Reactions: Allergies Allergy/AdvReac Type Severity Reaction Status Date / Time ibuprofen Allergy Severe Swelling Verified 06/28/18 16:35 Penicillins Allergy Verified 06/28/18 16:35 - Home Medications Home Medications: Ambulatory Orders Atorvastatin Ca [Lipitor] 80 mg PO HS 01/27/12 Tamsulosin HCl [Flomax -] 0.4 mg PO DAILY 12/30/13 Metoprolol Succinate [Toprol Xl] 50 mg PO BID 07/16/15 Amiodarone HCl [Cordarone -] 200 mg PO DAILY 06/28/18 Apixaban [Eliquis] 5 mg PO BID 06/28/18 Aspirin Coated [Ecotrin -] 81 mg PO DAILY 06/28/18 Furosemide [Lasix] 20 mg PO DAILY 06/28/18 Potassium Chloride [K-Dur -] 20 meq PO DAILY 06/28/18 Family Disease History - Family Disease History Family Disease History: Other: Father (: 76: renal failure), Mother (: 92: "natural causes") Other Family History: 11 siblings: 2 with pancreatic cancer, 1 with BCA, 1 liver cancer Physical Exam-ENT Vital Signs: Vital Signs Temperature 98.3 F 06/30/18 14:00 Pulse Rate 68 06/30/18 14:00 Respiratory Rate 16 06/30/18 14:00 Blood Pressure 129/78 06/30/18 14:00 O2 Sat by Pulse Oximetry (%) 97 06/30/18 10:00 Constitutional: Yes: Well Nourished, No Distress, Calm Head: Yes: WNL Face: Yes: WNL Eyes: Yes: WNL Nose: Yes: WNL Outer Ear: Yes: Other (normal right, dry blood jay and meatus left) Ear Canal: Yes: Other (normal right, dried and clotted blood left partially removed with curette, hears better (normal for patient), TM still not visualized , NO purulence, NO visible lesion or laceration) Tympanic Membrane: Yes: Other (normal right, not visualized left) Imaging - Results Chest X-ray: Report Reviewed Problem List - Problems (1) Bleeding from left ear Assessment/Plan: left ear bleeding no lesion visible but suspect laceration/abrasion old blood partially removed with improvement in hearing to baseline left ear TM still not visible Recommend: ofloxacin eardrops ordered, 5 gtts BID left ear x 7 days since discharge anticipated 07-01-18, to office next week for followi-up pt is established patient of Dr. Attila Santos in our group Code(s): H92.22 - OTORRHAGIA, LEFT EAR (2) Hearing loss Assessment/Plan: known SNHL both ears last audiogram patient had temporary reduction in left ear hearing because of blood, improved after partially removing blood from left ear canal Recommend: to office after discharge Thank you for consultation Carlo Moran MD FACS Code(s): H91.90 - UNSPECIFIED HEARING LOSS, UNSPECIFIED EAR Qualifiers: Hearing loss type: sensorineural Laterality: bilateral Qualified Code(s) : H90.3 - Sensorineural hearing loss, bilateral
[2018-06-30] MEDS: OFLOXACIN 0.3% OTIC SOLUTION 5 ML BOTTLE AS SCH (21:54)
[2018-07-01] MEDS: LACTATED RINGERS SOLUTION 1,000 ML/1,000 ML INFUS.BAG IV SCH (01:44)
[2018-07-01 06:47] LABS: HEMOGLOBIN 9.2 GM/dL (11.7-16.9); MCHC 31.7 g/dl (32.0-35.9); MEAN CELL VOLUME 82.1 fl (80-96); MEAN PLT VOLUME 9.1 fl (7.5-11.1); PLATELET COUNT 103 K/MM3 (134-434); RBC 3.53 M/mm3 (4.00-5.60); RDW 17.3 % (11.9-15.9); WHITE BLOOD COUNT 5.2 K/mm3 (4.0-10.0)
[2018-07-01 07:53] LABS: MAGNESIUM 2.1 mg/dL (1.8-2.4); PHOSPHOROUS 1.4 mg/dL (2.5-4.9)
[2018-07-01 08:07] LABS: ALBUMIN 2.5 g/dl (3.4-5.0); ALK PHOS 247 U/L (45-117); ANION GAP 9 MMOL/L (8-16); BILIRUBIN,TOTAL 6.3 mg/dL (0.2-1); BLOOD UREA NITROGEN 15 mg/dL (7-18); CHLORIDE 100 mmol/L (98-107); CO2 27 mmol/L (21-32); CREATININE 1.1 mg/dL (0.55-1.3); GLUCOSE,RANDOM 102 mg/dL (74-106); SGOT/AST 59 U/L (15-37); SGPT/ALT 58 U/L (13-61); SODIUM 136 mmol/L (136-145); TOT PROT 6.5 g/dl (6.4-8.2)
[2018-07-01] MEDS ORDERED: NAPH,MB-DB/K PH,MBDB POWDER PACKET PO ONE (08:16)
[2018-07-01 08:19] LABS: POTASSIUM 2.9 mmol/L (3.5-5.1)
[2018-07-01] MEDS ORDERED: POTASSIUM CHLORIDE TABS 20 MEQ TABLET.ER (FP) PO ONE (08:22)
[2018-07-01] MEDS: KCL 10 MEQ IVPB 10 MEQ/100 ML INFUS.BAG IVPB SCH ×2 (09:02→11:03)
[2018-07-01] MEDS: OFLOXACIN 0.3% OTIC SOLUTION 5 ML BOTTLE AS SCH ×2 (10:06→22:30)
--- NOTE | 2018-07-01 12:21 | PN ---
GI Progress Note Subjective: No abdominal pain. No focal complaints Tolerating PO - Objective Vital Signs: Vital Signs Temperature 98.2 F 07/01/18 08:50 Pulse Rate 96 H 07/01/18 08:50 Respiratory Rate 18 07/01/18 08:50 Blood Pressure 125/67 07/01/18 08:50 O2 Sat by Pulse Oximetry (%) 98 06/30/18 21:00 Constitutional: Calm Eyes: Yes: Sclera Icterus Cardiovascular: Yes: Tachycardia Respiratory: Yes: CTA Bilaterally Gastrointestinal Inspection: No: Scars ...Auscultate: Yes: Normoactive Bowel Sounds ...Palpate: No: Tenderness Neurological: Yes: Alert, Oriented Labs: CBC, BMP 07/01/18 06:00 07/01/18 06:00 INR, PTT INR 1.28 (0.83-1.09) H 06/30/18 06:00 Hepatic Panel Total Bilirubin 6.3 mg/dL (0.2-1) H 07/01/18 06:00 Direct Bilirubin 4.0 mg/dL (0.0-0.2) H 07/01/18 06:00 AST 59 U/L (15-37) H 07/01/18 06:00 ALT 58 U/L (13-61) 07/01/18 06:00 Alkaline Phosphatase 247 U/L (45-117) H 07/01/18 06:00 Albumin 2.5 g/dl (3.4-5.0) L 07/01/18 06:00 Problem List - Problems (1) Cholangitis Assessment/Plan: Bilirubin has come down a bit however ALP sulaiman. Clinically looks well Would continie to monitor LFTs'. hepatic panel ordered for AM Abx per ID Code(s): K83.09 - OTHER CHOLANGITIS
[2018-07-01] MEDS: CEFEPIME 2 GM in DEXTROSE 5%-WATER 100 ML IVPB SCH ×2 (12:43→22:30)
--- NOTE | 2018-07-01 13:48 | PN ---
Progress Note (short form) - Note Progress Note: oob in chair no fevers feels well diet to be advanced today Vital Signs Period Temp Pulse Resp BP Sys/Lujan Pulse Ox Last 24 Hr 98 F-99.3 F 62-100 16-20 121-145/54-78 98 cor-rrr lungs clear abd soft,nt ext no edema CBC, BMP 07/01/18 06:00 Microbiology 06/28/18 17:00 Blood - Peripheral Venous Blood Culture - Preliminary NO GROWTH OBTAINED AFTER 48 HOURS, INCUBATION TO CONTINUE FOR 3 DAYS. 06/28/18 16:45 Blood - Peripheral Venous Blood Culture - Preliminary NO GROWTH OBTAINED AFTER 48 HOURS, INCUBATION TO CONTINUE FOR 3 DAYS. 06/28/18 16:35 Urine - Urine Clean Catch Urine Culture - Final NO GROWTH OBTAINED a/p s/p ERCP afebrile, starting to feel better trend LFTS- continue cefepime/flagyl day #3- prolonged QTc-avoid quinolones can switch to ceftin 500 bid and flagyl 500 tid to finish total 10 days when ready for discharge discharge per GI pen allergy please call back if needed Problem List - Problems (1) Fever Code(s): R50.9 - FEVER, UNSPECIFIED (2) Abnormal LFTs Code(s): R79.89 - OTHER SPECIFIED ABNORMAL FINDINGS OF BLOOD CHEMISTRY (3) Left groin pain Code(s): R10.32 - LEFT LOWER QUADRANT PAIN (4) Penicillin allergy Code(s): Z88.0 - ALLERGY STATUS TO PENICILLIN
[2018-07-01 14:03] LABS: ANION GAP 7 MMOL/L (8-16); BLOOD UREA NITROGEN 13 mg/dL (7-18); CALCIUM 8.2 mg/dL (8.5-10.1); CHLORIDE 101 mmol/L (98-107); CO2 27 mmol/L (21-32); CREATININE 1.2 mg/dL (0.55-1.3); GLUCOSE,RANDOM 165 mg/dL (74-106); POTASSIUM 3.7 mmol/L (3.5-5.1); SODIUM 135 mmol/L (136-145)
--- NOTE | 2018-07-01 15:08 | PN ---
Physical Exam: SUBJECTIVE: Patient seen and examined at bedside. patient went into Afib overnight with max HR being in the 120's. patient states he is feeling much better; he denies any abdominal pain, nausea, vomiting fevers or diarrhea OBJECTIVE: Vital Signs Period Temp Pulse Resp BP Sys/Lujan Pulse Ox Last 24 Hr 98 F-99.3 F 62-100 16-20 110-145/54-67 98 GENERAL: The patient is awake, alert, and fully oriented, in no acute distress. EYES: no scleral icterus. NECK: no JVD, no lymphadenopathy LUNGS: CTA B/L; no rales, rhonchi or wheezing HEART: irregularly irregular S1, S2 without murmur, rub or gallop. ABDOMEN: Soft, nontender, nondistended, normoactive bowel sounds, no guarding, no rebound, no hepatosplenomegaly, no masses. EXTREMITIES: 2+ pulses, warm, well-perfused, no edema. PSYCH: Normal mood, normal affect. SKIN: Warm, dry, normal turgor, no rashes or lesions noted Laboratory Results - last 24 hr 06/30/18 07/01/18 07/01/18 06:00 06:00 06:00 WBC 5.2 RBC 3.53 L Hgb 9.2 L Hct 29.0 L MCV 82.1 MCH 26.0 MCHC 31.7 L RDW 17.3 H Plt Count 103 L MPV 9.1 Haptoglobin 178 Sodium Potassium Chloride Carbon Dioxide Anion Gap BUN Creatinine Creat Clearance w eGFR Random Glucose Calcium Phosphorus 1.4 L Magnesium 2.1 Total Bilirubin Direct Bilirubin AST ALT Alkaline Phosphatase Total Protein Albumin 07/01/18 07/01/18 06:00 13:10 WBC RBC Hgb Hct MCV MCH MCHC RDW Plt Count MPV Haptoglobin Sodium 136 135 L Potassium 2.9 L* 3.7 Chloride 100 101 Carbon Dioxide 27 27 Anion Gap 9 7 L BUN 15 13 Creatinine 1.1 1.2 Creat Clearance w eGFR > 60 58.11 Random Glucose 102 165 H Calcium 8.0 L 8.2 L Phosphorus Magnesium Total Bilirubin 6.3 H Direct Bilirubin 4.0 H AST 59 H ALT 58 Alkaline Phosphatase 247 H Total Protein 6.5 Albumin 2.5 L Active Medications Generic Name Dose Route Start Last Admin Trade Name Freq PRN Reason Stop Dose Admin Acetaminophen 650 mg 06/29/18 01:33 06/29/18 11:56 Tylenol - PO 650 mg Q4H PRN Administration Fever Or Pain Metronidazole 500 mg in 100 mls @ 100 mls/hr 06/29/18 02:00 07/01/18 13:47 Flagyl 500mg Premixed Ivpb - IVPB 100 mls/hr Q8H-IV ANTOINETTE Administration Lactated Ringer's 1,000 ml in 1,000 mls @ 60 mls/hr 06/29/18 01:45 07/01/18 01:44 Lactated Ringers Solution IV 60 mls/hr ASDIR ANTOINETTE Administration Cefepime HCl 2 gm/ Dextrose 100 mls @ 200 mls/hr 06/29/18 22:00 07/01/18 12: 43 IVPB 200 mls/hr BID ANTOINETTE Administration Protocol Metoprolol Succinate 50 mg 07/01/18 10:00 07/01/18 10:06 Toprol Xl - PO 50 mg BID ANTOINETTE Administration Ofloxacin 5 drop 06/30/18 22:00 07/01/18 10:06 Floxin Otic (Ear) Solution - 07/07/18 21:59 5 drop BID ANTOINETTE Administration ASSESSMENT/PLAN: Patient is an 83 y/o male with PMH of HTN, Afib, CABG (s/p stents in 2012), HLD , BPH who presents to the ED with left groin pain found to be septic with elevated bilirubin, LFT's imaging showing gallblaer thickening with multiple stones, mild CBD dilatation,is now s/p ERCP done yesterday. #Sepsis 2/2 possible cholangitis s/p ERCP -Dr. Jett wants patient upon discharge to go to [facility] for another ERCP and possible lap choley; wants to treat cholangitis first -c/w cefepime and flagyll upon discharge can switch to PO meds as per ID reccommendations -ID on board -monitor Tbilli; LFTS -LR @60 mls/hr -surgery and GI recs appreciated -repeat LFTS in AM #Afib holding eliquis for now -restarted patient on his home dose of metoprolol -left message for patients batch operator regarding when to restart eliquis #Hip Pain -patient had hip/pelvis XRAY done today which does not show any acute pathology. #HTN -holding all hypertensives for now until medically stable #hyponatremia -2/2 to sepsis vs. CHF ; patient euvolemic -resolved this am -will monitor #normocytic anemia -f/u iron studies -vitamin B 12 and folate levels F/E/N LR @60 mls/hr monitor electrolytes; hypokalemia repleted cholesterol restriced diet Problem List - Problems (1) Fever Code(s): R50.9 - FEVER, UNSPECIFIED (2) Left groin pain Code(s): R10.32 - LEFT LOWER QUADRANT PAIN Visit type - Emergency Visit Emergency Visit: Yes ED Registration Date: 06/28/18 Care time: The patient presented to the Emergency Department on the above date and was hospitalized for further evaluation of their emergent condition. - New Patient This patient is new to me today: No - Critical Care Critical Care patient: No
--- NOTE | 2018-07-01 15:40 | EKG ---
Test Reason : Blood Pressure : / mmHG Vent. Rate : 111 BPM Atrial Rate : 288 BPM P-R Int : 000 ms QRS Dur : 092 ms QT Int : 376 ms P-R-T Axes : 000 -15 102 degrees QTc Int : 511 ms ATRIAL FLUTTER WITH VARIABLE A-V BLOCK LEFT VENTRICULAR HYPERTROPHY WITH REPOLARIZATION ABNORMALITY ABNORMAL ECG WHEN COMPARED WITH ECG OF 30-JUN-2018 09:28, ATRIAL FLUTTER HAS REPLACED SINUS RHYTHM VENT. RATE HAS INCREASED BY 52 BPM Confirmed by SOFI COOK MD ([id number]) on 07/01/2018 3:39:24 PM Referred By: RUBEN TREVIÑO Confirmed By:SOFI COOK MD
--- NOTE | 2018-07-01 18:08 | PN ---
Teaching Attending Note Name of Resident: Sherita Moncada ATTENDING PHYSICIAN STATEMENT I saw and evaluated the patient. I reviewed the resident's note and discussed the case with the resident. I agree with the resident's findings and plan as documented with exceptions below. SUBJECTIVE: Patient seen and examined. denies any nausea, vomiting, abdominal pain. Tolerating diet well. no further left ear bleed. OBJECTIVE: Vital Signs Period Temp Pulse Resp BP Sys/Lujan Pulse Ox Last 24 Hr 98 F-99.3 F 62-100 16-20 110-145/54-67 98 Intake & Output 06/28/18 06/29/18 06/30/18 07/01/18 23:59 23:59 23:59 23:59 Intake Total 750 2740 1590 420 Output Total 440 3625 750 850 Balance 310 -885 840 -430 Weight 240 lb General: sitting in chair in no acute distress Chest: CTAB, no rales or wheezing Abdomen: soft, NT, ND, positive bowel sounds, neg Patel's sign, no voluntary or involuntary guarding or rigidity Extremities: no edema Home Medications Medication Instructions Recorded Atorvastatin Ca [Lipitor] 80 mg PO HS 01/27/12 Tamsulosin HCl [Flomax -] 0.4 mg PO DAILY 12/30/13 Metoprolol Succinate [Toprol Xl] 50 mg PO BID 07/16/15 Amiodarone HCl [Cordarone -] 200 mg PO DAILY 06/28/18 Apixaban [Eliquis] 5 mg PO BID 06/28/18 Aspirin Coated [Ecotrin -] 81 mg PO DAILY 06/28/18 Furosemide [Lasix] 20 mg PO DAILY 06/28/18 Potassium Chloride [K-Dur -] 20 meq PO DAILY 06/28/18 Active Medications Acetaminophen (Tylenol -) 650 mg PO Q4H PRN PRN Reason: Fever Or Pain Last Admin: 06/29/18 11:56 Dose: 650 mg Metronidazole (Flagyl 500mg Premixed Ivpb -) 500 mg in 100 mls @ 100 mls/hr IVPB Q8H-IV ANTOINETTE Last Admin: 07/01/18 13:47 Dose: 100 mls/hr Lactated Ringer's (Lactated Ringers Solution) 1,000 ml in 1,000 mls @ 60 mls/ hr IV ASDIR ANTOINETTE Last Admin: 07/01/18 01:44 Dose: 60 mls/hr Cefepime HCl 2 gm/ Dextrose 100 mls @ 200 mls/hr IVPB BID ANTOINETTE; Protocol Last Admin: 07/01/18 12:43 Dose: 200 mls/hr Metoprolol Succinate (Toprol Xl -) 50 mg PO BID ANTOINETTE Last Admin: 07/01/18 10:06 Dose: 50 mg Ofloxacin (Floxin Otic (Ear) Solution -) 5 drop BID ANTOINETTE Stop: 07/07/18 21:59 Last Admin: 07/01/18 10:06 Dose: 5 drop Laboratory Results - last 24 hr 06/30/18 07/01/18 07/01/18 06:00 06:00 06:00 WBC 5.2 RBC 3.53 L Hgb 9.2 L Hct 29.0 L MCV 82.1 MCH 26.0 MCHC 31.7 L RDW 17.3 H Plt Count 103 L MPV 9.1 Haptoglobin 178 Sodium Potassium Chloride Carbon Dioxide Anion Gap BUN Creatinine Creat Clearance w eGFR Random Glucose Calcium Phosphorus 1.4 L Magnesium 2.1 Total Bilirubin Direct Bilirubin AST ALT Alkaline Phosphatase Total Protein Albumin 07/01/18 07/01/18 06:00 13:10 WBC RBC Hgb Hct MCV MCH MCHC RDW Plt Count MPV Haptoglobin Sodium 136 135 L Potassium 2.9 L* 3.7 Chloride 100 101 Carbon Dioxide 27 27 Anion Gap 9 7 L BUN 15 13 Creatinine 1.1 1.2 Creat Clearance w eGFR > 60 58.11 Random Glucose 102 165 H Calcium 8.0 L 8.2 L Phosphorus Magnesium Total Bilirubin 6.3 H Direct Bilirubin 4.0 H AST 59 H ALT 58 Alkaline Phosphatase 247 H Total Protein 6.5 Albumin 2.5 L Microbiology 06/28/18 17:00 Blood - Peripheral Venous Blood Culture - Preliminary NO GROWTH OBTAINED AFTER 72 HOURS, INCUBATION TO CONTINUE FOR 2 DAYS. 06/28/18 16:45 Blood - Peripheral Venous Blood Culture - Preliminary NO GROWTH OBTAINED AFTER 72 HOURS, INCUBATION TO CONTINUE FOR 2 DAYS. 06/28/18 16:35 Urine - Urine Clean Catch Urine Culture - Final NO GROWTH OBTAINED ASSESSMENT AND PLAN: 83 y/o M with PMH afib on eliquis, CAD s/p CABG, HTN and admitted with choledocholithiasis/Acute cholangitis -Acute cholangitis s/p ERCP with stent placement 06/29, unable to retrieve stones -Choledochohilithiasis -Atrial fibrillation on eliquis -Normocytic anemia -ADILENE, likely from sepsis/hypovolumia, improved -Hypovolumic hyponatremia -Hypokalemia 0HTN -CAD s/p CABG in 02/2018 -Aortic stenosis -Left ear bleed, suspect external canal, ?traumatic, has sloughing with mild bleed in external auditory canal. Plan: Afib with RVR this AM, resume metoprolol. Hold eliquis for now in case needs urgent intervention. Also planned for imminent repeat ERCP and CCY outpatient. Discuss with outpatient heavy machinery assembler. Risks of resuming anti-coagulation higher. Discussed stroke risks and current need to hold eliquis given above and recent ear bleed. Patient relays understanding. GI input appreciated. Advance diet, trend LFTs. Cefepime/flagyl. Outpatient GI follow up for ERCP at tertiary care for stone extraction and eventual CCY. ENT input appreciated. Ofloxacin drops, No further bleed, monitor for now. DVTPPX on hold pending above, SCDs.. dispo d/c home in 48 hours if improved with no concerns. Plan discussed with patient in detail, all questions answered.
[2018-07-02] MEDS: LACTATED RINGERS SOLUTION 1,000 ML/1,000 ML INFUS.BAG IV SCH (02:07)
--- NOTE | 2018-07-02 05:32 | PN ---
Physical Exam: SUBJECTIVE: Patient seen and examined at bed side, no acute events over night , had small BM. denies any abdominal pain , N/V/D/C. OBJECTIVE: Vital Signs Period Temp Pulse Resp BP Sys/Lujan Pulse Ox Last 24 Hr 97.7 F-99.3 F 84-100 18-20 110-132/54-75 97 GENERAL: The patient is awake, alert, and fully oriented, in no acute distress. EYES: no scleral icterus. NECK: no JVD, no lymphadenopathy LUNGS: CTA B/L; no rales, rhonchi or wheezing HEART: irregularly irregular S1, S2 without murmur, rub or gallop. ABDOMEN: Soft, nontender, nondistended, normoactive bowel sounds, no guarding, no rebound, no hepatosplenomegaly, no masses. EXTREMITIES: 2+ pulses, warm, well-perfused, no edema. PSYCH: Normal mood, normal affect. SKIN: Warm, dry, normal turgor, no rashes or lesions noted Laboratory Results - last 24 hr 06/30/18 07/01/18 07/01/18 06:00 06:00 06:00 WBC 5.2 RBC 3.53 L Hgb 9.2 L Hct 29.0 L MCV 82.1 MCH 26.0 MCHC 31.7 L RDW 17.3 H Plt Count 103 L MPV 9.1 Haptoglobin 178 Sodium Potassium Chloride Carbon Dioxide Anion Gap BUN Creatinine Creat Clearance w eGFR Random Glucose Calcium Phosphorus 1.4 L Magnesium 2.1 Total Bilirubin Direct Bilirubin AST ALT Alkaline Phosphatase Total Protein Albumin 07/01/18 07/01/18 06:00 13:10 WBC RBC Hgb Hct MCV MCH MCHC RDW Plt Count MPV Haptoglobin Sodium 136 135 L Potassium 2.9 L* 3.7 Chloride 100 101 Carbon Dioxide 27 27 Anion Gap 9 7 L BUN 15 13 Creatinine 1.1 1.2 Creat Clearance w eGFR > 60 58.11 Random Glucose 102 165 H Calcium 8.0 L 8.2 L Phosphorus Magnesium Total Bilirubin 6.3 H Direct Bilirubin 4.0 H AST 59 H ALT 58 Alkaline Phosphatase 247 H Total Protein 6.5 Albumin 2.5 L Active Medications Generic Name Dose Route Start Last Admin Trade Name Freq PRN Reason Stop Dose Admin Acetaminophen 650 mg 06/29/18 01:33 06/29/18 11:56 Tylenol - PO 650 mg Q4H PRN Administration Fever Or Pain Metronidazole 500 mg in 100 mls @ 100 mls/hr 06/29/18 02:00 07/02/18 02:04 Flagyl 500mg Premixed Ivpb - IVPB 100 mls/hr Q8H-IV ANTOINETTE Administration Lactated Ringer's 1,000 ml in 1,000 mls @ 60 mls/hr 06/29/18 01:45 07/02/18 02:07 Lactated Ringers Solution IV Not Given ASDIR ANTOINETTE Cefepime HCl 2 gm/ Dextrose 100 mls @ 200 mls/hr 06/29/18 22:00 07/01/18 22: 30 IVPB 200 mls/hr BID ANTOINETTE Administration Protocol Metoprolol Succinate 50 mg 07/01/18 10:00 07/01/18 22:33 Toprol Xl - PO 50 mg BID ANTOINETTE Administration Ofloxacin 5 drop 06/30/18 22:00 07/01/18 22:30 Floxin Otic (Ear) Solution - 07/07/18 21:59 5 drop BID ANTOINETTE Administration ASSESSMENT/PLAN: Patient is an 83 y/o male with PMH of HTN, Afib, CABG (s/p stents in 2012), HLD , BPH who presents to the ED with left groin pain found to be septic with elevated bilirubin, LFT's imaging showing gallblaer thickening with multiple stones, mild CBD dilatation,is now s/p ERCP done yesterday. #Sepsis 2/2 possible cholangitis * s/p ERCP * Dr. Jett wants patient upon discharge to go to [facility] for another ERCP and possible lap choley; wants to treat cholangitis first * c/w cefepime and flagyl upon discharge can switch to PO meds as per ID reccommendations * ID on board * monitor Tbilli; LFTS * LR @60 mls/hr * surgery and GI recs appreciated #Afib * cont to hold eliquis for now * restarted patient on his home dose of metoprolol #Hip Pain * images with no acute pathology. #HTN * holding all hypertensives for now until medically stable #hyponatremia, resolved * 2/2 to sepsis vs. CHF ; patient euvolemic * cont to monitor #normocytic anemia * f/u iron studies * vitamin B 12 and folate levels #FEN * LR @60 mls/hr * monitor electrolytes; hypokalemia repleted * cholesterol restriced diet # Proph * Scds both legs # Dispo * can DC in 24 hours if there is no complications Visit type - Emergency Visit Emergency Visit: Yes ED Registration Date: 06/28/18 Care time: The patient presented to the Emergency Department on the above date and was hospitalized for further evaluation of their emergent condition. - New Patient This patient is new to me today: Yes Date on this admission: 07/02/18 - Critical Care Critical Care patient: No - Discharge Referral Referred to [facility] No
[2018-07-02 06:48] LABS: EOS % 1.5 % (0-4.5); HEMATOCRIT 30.4 % (35.4-49); HEMOGLOBIN 9.7 GM/dL (11.7-16.9); MCHC 32.1 g/dl (32.0-35.9); MEAN PLT VOLUME 8.4 fl (7.5-11.1); MONO % 17.7 % (3.8-10.2); NEUT % 60.8 % (42.8-82.8); PLATELET COUNT 107 K/MM3 (134-434); RBC 3.75 M/mm3 (4.00-5.60); RDW 17.2 % (11.9-15.9); WHITE BLOOD COUNT 5.5 K/mm3 (4.0-10.0)
[2018-07-02 08:27] LABS: ALBUMIN 2.5 g/dl (3.4-5.0); ALK PHOS 282 U/L (45-117); ANION GAP 5 MMOL/L (8-16); BILIRUBIN,DIRECT 2.9 mg/dL (0.0-0.2); BILIRUBIN,TOTAL 4.3 mg/dL (0.2-1); BLOOD UREA NITROGEN 13 mg/dL (7-18); CALCIUM 8.1 mg/dL (8.5-10.1); CHLORIDE 103 mmol/L (98-107); CO2 30 mmol/L (21-32); CREATININE 1.1 mg/dL (0.55-1.3); GLUCOSE,RANDOM 101 mg/dL (74-106); MAGNESIUM 2.3 mg/dL (1.8-2.4); POTASSIUM 4.1 mmol/L (3.5-5.1); SGOT/AST 51 U/L (15-37); SGPT/ALT 51 U/L (13-61); SODIUM 138 mmol/L (136-145); TOT PROT 6.6 g/dl (6.4-8.2)
--- NOTE | 2018-07-02 09:45 | PN ---
Teaching Attending Note Name of Resident: Domenico Santana ATTENDING PHYSICIAN STATEMENT I saw and evaluated the patient. I reviewed the resident's note and discussed the case with the resident. I agree with the resident's findings and plan as documented with exceptions below. SUBJECTIVE: Patient seen and examined. No nausea, vomiting, abdominal pain or ear bleed, feels well. OBJECTIVE: Vital Signs Period Temp Pulse Resp BP Sys/Lujan Pulse Ox Last 24 Hr 97.7 F-98.3 F 84-97 18-20 110-132/58-75 97 Intake & Output 06/29/18 06/30/18 07/01/18 07/02/18 23:59 23:59 23:59 23:59 Intake Total 2740 1590 570 700 Output Total 3625 750 1050 850 Balance -885 840 -480 -150 General: sitting in chair in no acute distress Chest: CTAB, no rales or wheezing Abdomen:soft, obese, NT throughout, positive bowel sounds Extremities: no edema HEENT: no new left ear bleeding noted, dried blood in the external canal Active Medications Acetaminophen (Tylenol -) 650 mg PO Q4H PRN PRN Reason: Fever Or Pain Last Admin: 06/29/18 11:56 Dose: 650 mg Metronidazole (Flagyl 500mg Premixed Ivpb -) 500 mg in 100 mls @ 100 mls/hr IVPB Q8H-IV ANTOINETTE Last Admin: 07/02/18 02:04 Dose: 100 mls/hr Lactated Ringer's (Lactated Ringers Solution) 1,000 ml in 1,000 mls @ 60 mls/ hr IV ASDIR ANTOINETTE Last Admin: 07/02/18 02:07 Dose: Not Given Cefepime HCl 2 gm/ Dextrose 100 mls @ 200 mls/hr IVPB BID ANTOINETTE; Protocol Last Admin: 07/01/18 22:30 Dose: 200 mls/hr Metoprolol Succinate (Toprol Xl -) 50 mg PO BID ANTOINETTE Last Admin: 07/01/18 22:33 Dose: 50 mg Ofloxacin (Floxin Otic (Ear) Solution -) 5 drop BID ANTOINETTE Stop: 07/07/18 21:59 Last Admin: 07/01/18 22:30 Dose: 5 drop Laboratory Results - last 24 hr 11/21/18 11/22/18 11/22/18 13:10 06:00 06:00 WBC 5.5 RBC 3.75 L Hgb 9.7 L Hct 30.4 L MCV 81.0 MCH 26.0 MCHC 32.1 RDW 17.2 H Plt Count 107 L MPV 8.4 Absolute Neuts (auto) 3.4 Neutrophils % 60.8 D Lymphocytes % 20.0 D Monocytes % 17.7 H D Eosinophils % 1.5 D Basophils % 0.0 Nucleated RBC % 0 Sodium 135 L 138 Potassium 3.7 4.1 Chloride 101 103 Carbon Dioxide 27 30 Anion Gap 7 L 5 L BUN 13 13 Creatinine 1.2 1.1 Creat Clearance w eGFR 58.11 > 60 Random Glucose 165 H 101 Calcium 8.2 L 8.1 L Phosphorus 2.0 L Magnesium 2.3 Total Bilirubin 4.3 H Direct Bilirubin 2.9 H AST 51 H ALT 51 Alkaline Phosphatase 282 H Total Protein 6.6 Albumin 2.5 L Microbiology 06/28/18 17:00 Blood - Peripheral Venous Blood Culture - Preliminary NO GROWTH OBTAINED AFTER 72 HOURS, INCUBATION TO CONTINUE FOR 2 DAYS. 06/28/18 16:45 Blood - Peripheral Venous Blood Culture - Preliminary NO GROWTH OBTAINED AFTER 72 HOURS, INCUBATION TO CONTINUE FOR 2 DAYS. 06/28/18 16:35 Urine - Urine Clean Catch Urine Culture - Final NO GROWTH OBTAINED ASSESSMENT AND PLAN: 83 y/o M with PMH afib on eliquis, CAD s/p CABG, HTN and admitted with choledocholithiasis/Acute cholangitis -Acute cholangitis s/p ERCP with stent placement 06/29, unable to retrieve stones -Choledochohilithiasis -Atrial fibrillation on eliquis -Normocytic anemia -ADILENE, likely from sepsis/hypovolumia, improved -Hypovolumic hyponatremia -Hypokalemia 0HTN -CAD s/p CABG in 02/2018 -Aortic stenosis -Left ear bleed, suspect external canal, ?traumatic, has sloughing with mild bleed in external auditory canal. Plan: HR improved, continue metoprolol. Hold eliquis for now in case needs urgent intervention. Also planned for imminent repeat ERCP and CCY outpatient. Discuss with outpatient moisture meter reader. Risks of resuming anti-coagulation higher. Discussed stroke risks and current need to hold eliquis given above and recent ear bleed. Patient relays understanding. GI input appreciated. PO as tolerated, LFTs continue to improved Cefepime/flagyl. ID input noted, transition to cefuroxime/Flagyl on d/c Outpatient GI follow up for ERCP at tertiary care for stone extraction and eventual CCY. ENT input appreciated. Ofloxacin drops, No further bleed, monitor for now. DVTPPX on hold pending above, SCDs.. dispo d/c home in 24 hours if continues to improve. Plan discussed with patient in detail, all questions answered.
[2018-07-02] MEDS: CEFEPIME 2 GM in DEXTROSE 5%-WATER 100 ML IVPB SCH ×2 (10:34→22:15)
[2018-07-02] MEDS: OFLOXACIN 0.3% OTIC SOLUTION 5 ML BOTTLE AS SCH ×2 (10:34→22:15)
[2018-07-02] MEDS ORDERED: NAPH,MB-DB/K PH,MBDB POWDER PACKET PO ONE (11:00)
--- NOTE | 2018-07-02 11:04 | PN ---
GI Progress Note Subjective: No acute events No abdominal pain Stets feeling well and tolerating PO Bilirubin down today - Objective Vital Signs: Vital Signs Temperature 98.0 F 07/02/18 10:00 Pulse Rate 90 07/02/18 10:00 Respiratory Rate 18 07/02/18 10:00 Blood Pressure 108/62 07/02/18 10:00 O2 Sat by Pulse Oximetry (%) 97 07/01/18 21:00 Constitutional: Calm Eyes: No: Sclera Icterus Cardiovascular: Yes: Pulse Irregular Respiratory: Yes: CTA Bilaterally Gastrointestinal Inspection: No: Distention ...Auscultate: Yes: Normoactive Bowel Sounds ...Palpate: No: Tenderness Edema: Yes Edema: LLE: 1+, RLE: 2+ Labs: CBC, BMP 07/02/18 06:00 07/02/18 06:00 INR, PTT INR 1.28 (0.83-1.09) H 06/30/18 06:00 Hepatic Panel Total Bilirubin 4.3 mg/dL (0.2-1) H 07/02/18 06:00 Direct Bilirubin 2.9 mg/dL (0.0-0.2) H 07/02/18 06:00 AST 51 U/L (15-37) H 07/02/18 06:00 ALT 51 U/L (13-61) 07/02/18 06:00 Alkaline Phosphatase 282 U/L (45-117) H 07/02/18 06:00 Albumin 2.5 g/dl (3.4-5.0) L 07/02/18 06:00 Problem List - Problems (1) Cholangitis Assessment/Plan: Choledocholithaisis noted on ERCP s/p CBD stent placement Clinically appears well, blood cx negative and remains afebrile. No objection to D/C home today Mr. Chew will be arranging follow-up with his PMD Dr. Castellanos next week and will be getting evaluated by advanced biliary endoscopist Dr. Tony Webster to arrange follow-up ERCP Advised: Avoidance of hepatotoxic agents: ie acetaminophen / statin therpay for now Management of A/C per primary team Code(s): K83.09 - OTHER CHOLANGITIS
[2018-07-02 13:51] LABS: ANISOCYTOSIS 2+; MACROCYTOSIS 0; OVALOCYTE 1+; PLATELET ESTIMATE DECREASED; TARGET CELLS 1+; TEAR DROP CELLS 1+
[2018-07-03 06:58] LABS: EOS % 2.4 % (0-4.5); HEMATOCRIT 31.3 % (35.4-49); HEMOGLOBIN 10.1 GM/dL (11.7-16.9); MCHC 32.1 g/dl (32.0-35.9); MEAN PLT VOLUME 8.8 fl (7.5-11.1); MONO % 13.6 % (3.8-10.2); PLATELET COUNT 130 K/MM3 (134-434); RBC 3.87 M/mm3 (4.00-5.60); RDW 17.6 % (11.9-15.9); WHITE BLOOD COUNT 6.2 K/mm3 (4.0-10.0)
[2018-07-03 07:43] LABS: ALBUMIN 2.6 g/dl (3.4-5.0); ALK PHOS 327 U/L (45-117); ANION GAP 6 MMOL/L (8-16); BILIRUBIN,DIRECT 2.3 mg/dL (0.0-0.2); BILIRUBIN,TOTAL 3.4 mg/dL (0.2-1); BLOOD UREA NITROGEN 14 mg/dL (7-18); CHLORIDE 104 mmol/L (98-107); CO2 27 mmol/L (21-32); CREATININE 1.1 mg/dL (0.55-1.3); GLUCOSE,RANDOM 109 mg/dL (74-106); MAGNESIUM 2.3 mg/dL (1.8-2.4); PHOSPHOROUS 2.4 mg/dL (2.5-4.9); POTASSIUM 3.8 mmol/L (3.5-5.1); SGOT/AST 52 U/L (15-37); SGPT/ALT 50 U/L (13-61); SODIUM 137 mmol/L (136-145)
[2018-07-03] MEDS ORDERED: PT OWN MED DRAWER 7, Y5N ONE (09:44)
[2018-07-03] MEDS: OFLOXACIN 0.3% OTIC SOLUTION 5 ML BOTTLE AS SCH (09:46)
[2018-07-03] MEDS: CEFEPIME 2 GM in DEXTROSE 5%-WATER 100 ML IVPB SCH (09:46)
--- NOTE | 2018-07-03 14:28 | PN ---
Teaching Attending Note Name of Resident: Sherita Moncada ATTENDING PHYSICIAN STATEMENT I saw and evaluated the patient. I reviewed the resident's note and discussed the case with the resident. I agree with the resident's findings and plan as documented with exceptions below. SUBJECTIVE: Patient seen and examined, doing well, no further complaints. OBJECTIVE: Vital Signs Period Temp Pulse Resp BP Sys/Lujan Pulse Ox Last 24 Hr 97.6 F-98.1 F 79-85 16-18 122-139/65-79 95-98 Intake & Output 06/30/18 07/01/18 07/02/18 07/03/18 23:59 23:59 23:59 23:59 Intake Total 5718 916 6299 300 Output Total 750 1050 2050 600 Balance 840 -480 -200 -300 General: lying in bed in no acute distress HEENT: no further left ear bleed Abdomen:soft, NT, ND, positive bowel sounds, neg Patel's sign Active Medications Acetaminophen (Tylenol -) 650 mg PO Q4H PRN PRN Reason: Fever Or Pain Last Admin: 06/29/18 11:56 Dose: 650 mg Metronidazole (Flagyl 500mg Premixed Ivpb -) 500 mg in 100 mls @ 100 mls/hr IVPB Q8H-IV ANTOINETTE Last Admin: 07/03/18 09:45 Dose: 100 mls/hr Cefepime HCl 2 gm/ Dextrose 100 mls @ 200 mls/hr IVPB BID ANTOINETTE; Protocol Last Admin: 07/03/18 09:46 Dose: 200 mls/hr Metoprolol Succinate (Toprol Xl -) 50 mg PO BID ANTOINETTE Last Admin: 07/03/18 09:46 Dose: 50 mg Ofloxacin (Floxin Otic (Ear) Solution -) 5 drop BID ANTOINETTE Stop: 07/07/18 21:59 Last Admin: 07/03/18 09:46 Dose: 5 drop Laboratory Results - last 24 hr 07/03/18 07/03/18 06:00 06:00 WBC 6.2 RBC 3.87 L Hgb 10.1 L Hct 31.3 L MCV 81.0 MCH 26.0 MCHC 32.1 RDW 17.6 H Plt Count 130 L D MPV 8.8 Absolute Neuts (auto) 3.6 Neutrophils % 58.0 Lymphocytes % 25.0 D Monocytes % 13.6 H Eosinophils % 2.4 Basophils % 1.0 D Nucleated RBC % 0 Sodium 137 Potassium 3.8 Chloride 104 Carbon Dioxide 27 Anion Gap 6 L BUN 14 Creatinine 1.1 Creat Clearance w eGFR > 60 Random Glucose 109 H Calcium 8.0 L Phosphorus 2.4 L Magnesium 2.3 Total Bilirubin 3.4 H Direct Bilirubin 2.3 H AST 52 H ALT 50 Alkaline Phosphatase 327 H Total Protein 7.0 Albumin 2.6 L ASSESSMENT AND PLAN: 83 y/o M with PMH afib on eliquis, CAD s/p CABG, HTN and admitted with choledocholithiasis/Acute cholangitis -Acute cholangitis s/p ERCP with stent placement 06/29, unable to retrieve stones -Choledochohilithiasis -Atrial fibrillation on eliquis -Normocytic anemia -ADILENE, likely from sepsis/hypovolumia, improved -Hypovolumic hyponatremia -Hypokalemia 0HTN -CAD s/p CABG in 02/2018 -Aortic stenosis -Left ear bleed, suspect external canal, ?traumatic, has sloughing with mild bleed in external auditory canal. Plan: LFTs continue to improve, asymptomatic, tolerating diet well. GI input noted. AVoid tylenol/statin for now. Outpatient GI follow up for ERCP at tertiary care center given complicated anatomy and eventual CCY. Patient and PCP aware. LFTs in 1 week. Discussed with outpatient neurosurgery physician, recommends resuming eliquis, patient informed. Will need to co-ordinate holding AC pre-procedure outpatient Cefuroxime/Flagyl x 5 days. plan discussed with patient in detail, all questions answered. d/c home today with outpatient PCP, GI, cardiology follow up and LFTs monitoring.
[2018-07-03 14:47] VITALS: BP 140/70; PULSE 81; TEMP 98
--- NOTE | 2018-07-03 16:16 | DS ---
Physical Examination Vital Signs: Vital Signs Temperature 98.0 F 07/03/18 14:00 Pulse Rate 81 07/03/18 14:00 Respiratory Rate 18 07/03/18 14:00 Blood Pressure 140/70 07/03/18 14:00 O2 Sat by Pulse Oximetry (%) 98 07/03/18 09:00 Constitutional: Yes: No Distress Eyes: No: Sclera Icterus Cardiovascular: Yes: Pulse Irregular, S1, S2 Respiratory: Yes: CTA Bilaterally Gastrointestinal: Yes: Normal Bowel Sounds, Soft. No: Tenderness, Rebound Edema: No Labs: CBC, BMP 07/03/18 06:00 07/03/18 06:00 Discharge Summary Reason For Visit: [facility]OLANGITIS Hospital Course: 83 y/o male with PMH of HTN, CAD, presented to the ED with left thigh/groin pain , was subsequently found to have elevated LFTS and bilirubin in addition to an elevated WBC count. an abdominal ultrasound was done which showed gallstones, diffuse gallbladder wall thickening and a mildly dilated CBD at 0.7 mm. He was seen by GI who did an emergency ERCP as patients tbilli was 8 and direct isaiah was 6 and WBC was 12 and there was concern for ascending cholangitis. As per the GI who did the ERCP his anatomy was difficult so he was able to releive the pus and blockage from the CBD however patient would need a subsequent ERCP and most likely lap ming at a tertiary care center. pateint was on cefepime and flagyl for abx coverage. his numbers decreased and was discahrged on ceftin and flagyl for a total of 10 days course and with strict follow up with his PCP who was making arrangements for him to get an ercp oriana alex at [facility]. Condition: Stable - Instructions Diet, Activity, Other Instructions: You came to the emergency room with left thigh pain and were found to have gallstones and inflammation of your bile duct requiring an ERCP procedure with stent placement, but unable to remove stones at his point. This will require further evaluation. Please resume all of your medications including the eliquis (spoke to Dr. Darby , said its ok to restart your eliquis) in addition: -please take the following antibiotics for a total of 5 days starting tomorrow: Ceftin 500mg twice a day Flagyl 500mg three times a day -please do not take your atorvastatin until further instructed by your doctor. Please note that your will need repeat Endoscpy ( ERCP) at a tertiary care center and eventually surgery to remove your gallbladder. Our sports medicine trainer dicussed with your doctor. It is very important that you follow up with your doctor early next week to discuss further plan. Your surgical dressing maker recommended continuing eliquis for now. Please note that your eliquis might need to be held before the procedure and will need to be co- ordinated between your surgical dressing maker and sports medicine trainer. Referrals: -please see your primary care physician, Dr. Castellanos within the next few days -please follow up with Dr. Encinas, the sports medicine trainer, within a week -please see the ENT doctor, Dr. Moran if you have anymore bleeding from the ear. Otherwise, please follow up for your regular appointment. please have your blood test for liver enzymes checked within a week with your doctor and avoid taking tylenol *if you begin to experience fevers, abdominal pain, nausea, vomiting, chest pain , shortness of breath, jaundice or any new concerns please return to the emergency room immediately Referrals: Ezio Castellanos [Primary Care Provider] - 1 Week Dheeraj Encinas DO [Staff Physician] - Carlo Moran MD [Staff Physician] - Disposition: HOME - Home Medications Comprehensive Discharge Medication List: Ambulatory Orders Tamsulosin HCl [Flomax -] 0.4 mg PO DAILY 12/30/13 Metoprolol Succinate [Toprol Xl] 50 mg PO BID 07/16/15 Amiodarone HCl [Cordarone -] 200 mg PO DAILY 06/28/18 Apixaban [Eliquis] 5 mg PO BID 06/28/18 Aspirin Coated [Ecotrin -] 81 mg PO DAILY 06/28/18 Furosemide [Lasix] 20 mg PO DAILY 06/28/18 Potassium Chloride [K-Dur -] 20 meq PO DAILY 06/28/18 Cefuroxime Axetil [Ceftin -] 500 mg PO Q12H 5 Days #10 tablet 07/03/18 metroNIDAZOLE [Flagyl -] 250 mg PO TID 5 Days #15 tablet 07/03/18 This patient is new to me today: No Emergency Visit: Yes ED Registration Date: 06/28/18 Care time: The patient presented to the Emergency Department on the above date and was hospitalized for further evaluation of their emergent condition. Critical Care patient: No - Discharge Referral Referred to [facility] Yes Physician Referral: Nolan Encinas DO (GI)
== END 2018-07-03 16:09 | disposition home or self-care (01) | DRG 872 ==
LOC: FER 16:07 → J4S 22:53
PROVIDERS: ADMIT Internal Medicine; ATTEND Hospitalist
PROC: 30233K1 Transfusion of Nonautologous Frozen Plasma into Peripheral Vein, Percutaneous Approach (ICD-10-PCS; 2018-06-29)
PROC: 0F798DZ Dilation of Common Bile Duct with Intraluminal Device, Via Natural or Artificial Opening Endoscopic (ICD-10-PCS; principal; 2018-06-29 14:15)
DX: A41.9 Sepsis, unspecified organism (principal); E87.1 Hypo-osmolality and hyponatremia; N17.9 Acute kidney failure, unspecified; D68.59 Other primary thrombophilia; K80.30 Calculus of bile duct with cholangitis, unspecified, without obstruction; R17 Unspecified jaundice; I25.10 Atherosclerotic heart disease of native coronary artery without angina pectoris; N40.0 Benign prostatic hyperplasia without lower urinary tract symptoms; E78.5 Hyperlipidemia, unspecified; I35.0 Nonrheumatic aortic (valve) stenosis; E87.6 Hypokalemia; R10.30 Lower abdominal pain, unspecified; I48.91 Unspecified atrial fibrillation; D64.9 Anemia, unspecified; R50.9 Fever, unspecified; E66.9 Obesity, unspecified; Z68.37 Body mass index [BMI] 37.0-37.9, adult; I25.2 Old myocardial infarction; I10 Essential (primary) hypertension; R79.89 Other specified abnormal findings of blood chemistry; R07.89 Other chest pain; H92.22 Otorrhagia, left ear; H90.3 Sensorineural hearing loss, bilateral; I45.81 Long QT syndrome; Z95.1 Presence of aortocoronary bypass graft; Z88.0 Allergy status to penicillin; Z87.891 Personal history of nicotine dependence
CPT/HCPCS: 36415; 36430; 71045-TC-FY; 73523-TC-FY; 74330-TC; 76700-TC; 80048; 80053; 80074; 80076; 81003; 81015; 82150; 82248; 82465; 82550; 82553; 82570; 82728; 82803; 83010; 83540; 83550; 83605; 83615; 83690; 83735; 83880; 83930; 83935; 84100; 84300; 84484; 85025; 85027; 85044; 85610; 85651; 85730; 86140; 86850; 86900; 86901; 87040; 87086; 87804; 93005; 93010; 93306-TC; 97116-GP; 97161-GP; 99285-25; J0131; J7030; P9017